=== PATIENT | male | born 1945 | race Caucasian/White ===

== ENCOUNTER 2018-06-21 23:27 | Inpatient (IN) ==
[2018-06-22] MEDS: SODIUM CHLORIDE 0.9% 1,000 ML IV SCH ×3 (02:00→20:12)
[2018-06-22] MEDS ORDERED: ALBUTEROL 2.5 MG/3 ML NEB RESP TX PRN (02:17)
[2018-06-22] MEDS ORDERED: ONDANSETRON 4 MG/2 ML VIAL IV PRN (02:17)
[2018-06-22] MEDS ORDERED: AZITHROMYCIN INJ 500 MG in SODIUM CHLORIDE 0.9% 250 ML IV SCH (03:00)
[2018-06-22] MEDS: LEVOTHYROXINE 25 MCG TABLET PO SCH (06:10)
[2018-06-22 08:07] LABS: Basophils % 0.3 % (0.0-0.8); Hematocrit 40.4 VOL% (42.0-52.0); Hemoglobin 13.3 GM/DL (14.0-18.0); Immature Granulocytes Absolute 0.07 #; Lymphocytes # 0.5 10*3/uL (1.4-4.0); Lymphocytes % 7.4 % (21.2-54.2); Mean Corpuscular HGB Conc 32.9 GM/DL (32-36); Mean Corpuscular Hemoglobin 32 PG (27-34); Mean Corpuscular Volume 95.7 FL (87-102); Mean Platelet Volume 11.5 FL (9.6-12.0); Monocytes # 0.4 10*3/uL (0.11-0.8); Monocytes % 6.1 % (1.7-12.7); Neutrophils # 6.1 10*3/uL (1.4-7.4); Neutrophils % 85.2 % (38.7-73.9); Platelet Count 70 T/CUMM (130-400); Red Blood Count 4.22 MC/CUMM (3.8-5.5); Red Cell Distribution Width 15.4 % (9.3-17.3); White Blood Count 7.2 T/CUMM (4-12)
[2018-06-22 08:24] LABS: Albumin 3.1 G/DL (3.4-5.0); Bilirubin,Total 0.6 MG/DL (0.2-1.0); Calcium 7.7 MG/DL (8.5-10.1); Osmolality,Calculated 277.7 MOS/KG (273-304); Potassium 3.9 MMOL/L (3.5-5.1); Total Protein 6.1 G/DL (6.4-8.3)
[2018-06-22] MEDS ORDERED: PANTOPRAZOLE 40 MG TABLET PO SCH (09:00)
[2018-06-22] MEDS ORDERED: predniSONE 20 MG TABLET PO SCH (09:00)
[2018-06-22 10:22] LABS: Hypochromasia 1+; Platelet Estimate Decreased
[2018-06-22] MEDS: GABAPENTIN 300 MG CAPSULE PO SCH ×3 (10:24→20:06)
[2018-06-22] MEDS: ASPIRIN EC 81 MG TABLET PO SCH (10:24)
[2018-06-22] MEDS: CIPROFLOXACIN 500 MG TABLET PO SCH ×2 (10:24→20:06)
[2018-06-22] MEDS: TAMSULOSIN 0.4 MG CAPSULE PO SCH (10:24)
[2018-06-22] MEDS: PRAVASTATIN 40 MG TABLET PO SCH (10:25)
[2018-06-22] MEDS: ALLOPURINOL 300 MG TABLET PO SCH (10:26)
[2018-06-22] MEDS: ACETAMINOPHEN 325 MG TABLET PO PRN (10:26)
[2018-06-22] MEDS: PANTOPRAZOLE 40 MG TABLET PO SCH (10:26)
[2018-06-22] MEDS: ENOXAPARIN 40 MG/0.4 ML SYRINGE SUBCUT SCH (10:27)
[2018-06-22 12:05] LABS: Apearance,Urine CLEAR (Clear); Bilirubin,Urine Negative (Negative); Blood, Urine Small mg/dL (Negative); Glucose,Urine (UA) Negative (Negative); Ketones,Urine 5 mg/dL (Negative); Mucus,Urine Occasional /LPF (Occasional); Nitrite,Urine Negative (Negative); Protein,Urine 30 MG/DL; RBC,Urine 2 /HPF (0-4); Squamous Epithelial Cell,Urine Occasional /HPF (0-10); Urine Color Yellow (Yellow); Urine Specific Gravity 1.015 (1.001-1.035); Urine Urobilinogen < 2.0 EU/DL (0.2-1.0); WBC,Urine 1 /HPF (0-6)
[2018-06-22] MEDS: methylPREDNISolone SOD SUC 40 MG/1 ML VIAL IV SCH (14:56)
[2018-06-22] MEDS: ALBUTEROL/IPRATROPIUM 3 ML NEB RESP TX SCH (19:27)
[2018-06-22] MEDS: MONTELUKAST 10 MG TABLET PO SCH (20:07)
[2018-06-23] MEDS: ALBUTEROL/IPRATROPIUM 3 ML NEB RESP TX SCH (01:43)
[2018-06-23] MEDS: methylPREDNISolone SOD SUC 40 MG/1 ML VIAL IV SCH ×2 (02:11→14:57)
[2018-06-23] MEDS: SODIUM CHLORIDE 0.9% 1,000 ML IV SCH ×3 (02:14→15:02)
[2018-06-23] MEDS ORDERED: cefTRIAXone 1,000 MG in SYRINGE 1 EACH IV SCH (02:30)
[2018-06-23] MEDS ORDERED: NITROGLYCERIN SL 0.4 MG TABLET SL PRN (03:40)
[2018-06-23] MEDS ORDERED: MORPHINE 4 MG/1 ML VIAL IV PRN (03:40)
[2018-06-23] MEDS ORDERED: ASPIRIN CHEW 81 MG TABLET PO ONE (04:00)
[2018-06-23 04:31] LABS: Basophils % 0.3 % (0.0-0.8); Hematocrit 42.2 VOL% (42.0-52.0); Hemoglobin 13.5 GM/DL (14.0-18.0); Immature Granulocytes % 1.1 %; Immature Granulocytes Absolute 0.04 #; Lymphocytes # 0.3 10*3/uL (1.4-4.0); Mean Corpuscular Hemoglobin 31 PG (27-34); Mean Corpuscular Volume 97.5 FL (87-102); Mean Platelet Volume 12.3 FL (9.6-12.0); Monocytes # 0.1 10*3/uL (0.11-0.8); Monocytes % 3.7 % (1.7-12.7); Neutrophils # 3.1 10*3/uL (1.4-7.4); Neutrophils % 86.9 % (38.7-73.9); Platelet Count 65 T/CUMM (130-400); Red Blood Count 4.33 MC/CUMM (3.8-5.5); Red Cell Distribution Width 14.8 % (9.3-17.3); White Blood Count 3.5 T/CUMM (4-12)
[2018-06-23 04:52] LABS: Hypochromasia 1+; Platelet Estimate Decreased
[2018-06-23 05:06] LABS: Calcium 7.6 MG/DL (8.5-10.1)
[2018-06-23 05:07] LABS: Osmolality,Calculated 284.4 MOS/KG (273-304); Potassium 3.5 MMOL/L (3.5-5.1)
[2018-06-23] MEDS ORDERED: LEVALBUTEROL 1.25 MG/3 ML NEB RESP TX PRN (05:27)
[2018-06-23] MEDS: LEVOTHYROXINE 25 MCG TABLET PO SCH (05:41)
[2018-06-23] MEDS: ENOXAPARIN 40 MG/0.4 ML SYRINGE SUBCUT SCH (08:58)
[2018-06-23] MEDS: GABAPENTIN 300 MG CAPSULE PO SCH ×3 (08:59→21:55)
[2018-06-23] MEDS: ASPIRIN EC 81 MG TABLET PO SCH (09:00)
[2018-06-23] MEDS: CIPROFLOXACIN 500 MG TABLET PO SCH ×2 (09:00→21:55)
[2018-06-23] MEDS: TAMSULOSIN 0.4 MG CAPSULE PO SCH (09:00)
[2018-06-23] MEDS: PANTOPRAZOLE 40 MG TABLET PO SCH (09:01)
[2018-06-23] MEDS: ALLOPURINOL 300 MG TABLET PO SCH (09:01)
[2018-06-23] MEDS: PRAVASTATIN 40 MG TABLET PO SCH (09:01)
[2018-06-23] MEDS: POTASSIUM CHLORIDE 20 MEQ TABLET PO PRN ×2 (09:01→11:55)
[2018-06-23 09:10] LABS: Thyroid Stimulating Hormone 0.313 uIU/ml (0.358-3.74); Uric Acid 4.1 MG/DL (3.5-7.2)
[2018-06-23] MEDS ORDERED: CALCIUM GLUCONATE 1,000 MG in SODIUM CHLORIDE 0.9% 100 ML IV ONE (11:30)
[2018-06-23] MEDS: cefTAZidime 1,000 MG in SYRINGE 1 EACH IV SCH ×2 (12:56→19:00)
[2018-06-23] MEDS: MONTELUKAST 10 MG TABLET PO SCH (21:55)
[2018-06-24] MEDS: ACETAMINOPHEN 325 MG TABLET PO PRN (03:42)
[2018-06-24] MEDS: cefTAZidime 1,000 MG in SYRINGE 1 EACH IV SCH ×3 (03:45→17:59)
[2018-06-24] MEDS: methylPREDNISolone SOD SUC 40 MG/1 ML VIAL IV SCH ×2 (05:15→15:27)
[2018-06-24 05:24] LABS: Basophils % 0.1 % (0.0-0.8); Hematocrit 37.8 VOL% (42.0-52.0); Hemoglobin 12.3 GM/DL (14.0-18.0); Immature Granulocytes % 0.5 %; Immature Granulocytes Absolute 0.04 #; Lymphocytes # 0.6 10*3/uL (1.4-4.0); Lymphocytes % 7.7 % (21.2-54.2); Mean Corpuscular HGB Conc 32.5 GM/DL (32-36); Mean Corpuscular Hemoglobin 31 PG (27-34); Mean Corpuscular Volume 95.2 FL (87-102); Mean Platelet Volume 13.3 FL (9.6-12.0); Monocytes # 0.4 10*3/uL (0.11-0.8); Monocytes % 5.3 % (1.7-12.7); Neutrophils # 6.7 10*3/uL (1.4-7.4); Neutrophils % 86.4 % (38.7-73.9); Red Blood Count 3.97 MC/CUMM (3.8-5.5); Red Cell Distribution Width 14.9 % (9.3-17.3); White Blood Count 7.8 T/CUMM (4-12)
[2018-06-24 05:27] LABS: Platelet Count 74 T/CUMM (130-400)
[2018-06-24 05:36] LABS: Partial Thromboplastin Time 28.4 SECS (0-40)
[2018-06-24] MEDS: LEVOTHYROXINE 25 MCG TABLET PO SCH (05:45)
[2018-06-24 05:49] LABS: Calcium 7.7 MG/DL (8.5-10.1); Osmolality,Calculated 284.3 MOS/KG (273-304); Potassium 4.4 MMOL/L (3.5-5.1)
[2018-06-24] MEDS: ENOXAPARIN 40 MG/0.4 ML SYRINGE SUBCUT SCH (08:31)
[2018-06-24] MEDS: GABAPENTIN 300 MG CAPSULE PO SCH ×3 (08:31→20:49)
[2018-06-24] MEDS: PRAVASTATIN 40 MG TABLET PO SCH (08:31)
[2018-06-24] MEDS: CIPROFLOXACIN 500 MG TABLET PO SCH ×2 (08:32→20:49)
[2018-06-24] MEDS: ALLOPURINOL 300 MG TABLET PO SCH (08:32)
[2018-06-24] MEDS: PANTOPRAZOLE 40 MG TABLET PO SCH (08:32)
[2018-06-24] MEDS: TAMSULOSIN 0.4 MG CAPSULE PO SCH (08:32)
[2018-06-24] MEDS: ASPIRIN EC 81 MG TABLET PO SCH (08:33)
[2018-06-24] MEDS: NIFEdipine 10 MG CAPSULE PO PRN (10:23)
[2018-06-24] MEDS ORDERED: amLODIPine 2.5 MG TABLET PO SCH (11:00)
[2018-06-24] MEDS: SODIUM CHLORIDE 0.9% 1,000 ML IV SCH (14:57)
[2018-06-24] MEDS: MONTELUKAST 10 MG TABLET PO SCH (20:49)
[2018-06-25] MEDS: methylPREDNISolone SOD SUC 40 MG/1 ML VIAL IV SCH ×2 (02:09→15:44)
[2018-06-25] MEDS: cefTAZidime 1,000 MG in SYRINGE 1 EACH IV SCH ×3 (02:16→18:16)
[2018-06-25] MEDS: NIFEdipine 10 MG CAPSULE PO PRN (03:30)
[2018-06-25 05:36] LABS: Basophils % 0.1 % (0.0-0.8); Hematocrit 39.8 VOL% (42.0-52.0); Hemoglobin 12.8 GM/DL (14.0-18.0); Immature Granulocytes % 0.9 %; Immature Granulocytes Absolute 0.08 #; Lymphocytes # 0.6 10*3/uL (1.4-4.0); Lymphocytes % 6.4 % (21.2-54.2); Mean Corpuscular HGB Conc 32.2 GM/DL (32-36); Mean Corpuscular Hemoglobin 31 PG (27-34); Mean Corpuscular Volume 95.7 FL (87-102); Mean Platelet Volume 12.5 FL (9.6-12.0); Monocytes # 0.5 10*3/uL (0.11-0.8); Monocytes % 5.9 % (1.7-12.7); Neutrophils # 7.6 10*3/uL (1.4-7.4); Neutrophils % 86.7 % (38.7-73.9); Platelet Count 90 T/CUMM (130-400); Red Blood Count 4.16 MC/CUMM (3.8-5.5); Red Cell Distribution Width 14.9 % (9.3-17.3); White Blood Count 8.7 T/CUMM (4-12)
[2018-06-25] MEDS: LEVOTHYROXINE 25 MCG TABLET PO SCH (05:45)
[2018-06-25 05:59] LABS: Calcium 8.1 MG/DL (8.5-10.1); Osmolality,Calculated 287.1 MOS/KG (273-304)
[2018-06-25 07:43] LABS: Band Neutrophils 2 % (0-10); Lymphocytes 10 % (20-55); Platelet Estimate Decreased; Segmented Neutrophils 85 % (50-85); Total Cells Counted 100
[2018-06-25] MEDS: PRAVASTATIN 40 MG TABLET PO SCH (08:51)
[2018-06-25] MEDS: ASPIRIN EC 81 MG TABLET PO SCH (08:51)
[2018-06-25] MEDS: ENOXAPARIN 40 MG/0.4 ML SYRINGE SUBCUT SCH (08:51)
[2018-06-25] MEDS: amLODIPine 5 MG TABLET PO SCH (08:51)
[2018-06-25] MEDS: GABAPENTIN 300 MG CAPSULE PO SCH ×2 (08:51→15:44)
[2018-06-25] MEDS: TAMSULOSIN 0.4 MG CAPSULE PO SCH (08:52)
[2018-06-25] MEDS: ALLOPURINOL 300 MG TABLET PO SCH (08:52)
[2018-06-25] MEDS: CIPROFLOXACIN 500 MG TABLET PO SCH ×2 (08:52→21:53)
[2018-06-25] MEDS: PANTOPRAZOLE 40 MG TABLET PO SCH (08:52)
[2018-06-25] MEDS: GABAPENTIN 100 MG CAPSULE PO SCH (21:52)
[2018-06-25] MEDS: MONTELUKAST 10 MG TABLET PO SCH (21:53)
[2018-06-25] MEDS: GABAPENTIN 600 MG TABLET PO SCH (21:53)
[2018-06-26] MEDS: methylPREDNISolone SOD SUC 40 MG/1 ML VIAL IV SCH ×2 (05:01→15:47)
[2018-06-26] MEDS: cefTAZidime 1,000 MG in SYRINGE 1 EACH IV SCH ×3 (05:04→18:00)
[2018-06-26] MEDS: GABAPENTIN 300 MG CAPSULE PO SCH (05:41)
[2018-06-26 06:21] LABS: Basophils % 0.2 % (0.0-0.8); Hematocrit 39.8 VOL% (42.0-52.0); Hemoglobin 13.1 GM/DL (14.0-18.0); Immature Granulocytes % 1.8 %; Immature Granulocytes Absolute 0.12 #; Lymphocytes # 0.8 10*3/uL (1.4-4.0); Lymphocytes % 11.5 % (21.2-54.2); Mean Corpuscular HGB Conc 32.9 GM/DL (32-36); Mean Corpuscular Hemoglobin 31 PG (27-34); Mean Corpuscular Volume 95.4 FL (87-102); Mean Platelet Volume 12.1 FL (9.6-12.0); Monocytes # 0.4 10*3/uL (0.11-0.8); Monocytes % 6.3 % (1.7-12.7); NRBC # 0.02 10*3/uL; Neutrophils # 5.3 10*3/uL (1.4-7.4); Neutrophils % 80.2 % (38.7-73.9); Platelet Count 104 T/CUMM (130-400); Red Blood Count 4.17 MC/CUMM (3.8-5.5); Red Cell Distribution Width 15.1 % (9.3-17.3); White Blood Count 6.6 T/CUMM (4-12)
[2018-06-26] MEDS: LEVOTHYROXINE 25 MCG TABLET PO SCH (06:40)
[2018-06-26 06:48] LABS: Calcium 8.3 MG/DL (8.5-10.1)
[2018-06-26] MEDS: ENOXAPARIN 40 MG/0.4 ML SYRINGE SUBCUT SCH (08:15)
[2018-06-26] MEDS: GABAPENTIN 600 MG TABLET PO SCH ×4 (08:16→21:31)
[2018-06-26] MEDS: PRAVASTATIN 40 MG TABLET PO SCH (08:16)
[2018-06-26] MEDS: amLODIPine 5 MG TABLET PO SCH (08:16)
[2018-06-26] MEDS: TAMSULOSIN 0.4 MG CAPSULE PO SCH (08:16)
[2018-06-26] MEDS: ASPIRIN EC 81 MG TABLET PO SCH (08:16)
[2018-06-26] MEDS: ALLOPURINOL 300 MG TABLET PO SCH (08:16)
[2018-06-26] MEDS: CIPROFLOXACIN 500 MG TABLET PO SCH ×2 (08:16→21:31)
[2018-06-26] MEDS: GABAPENTIN 100 MG CAPSULE PO SCH ×3 (08:16→21:31)
[2018-06-26] MEDS: PANTOPRAZOLE 40 MG TABLET PO SCH (08:16)
[2018-06-26] MEDS: AZELASTINE NASAL 137 MCG/SPRAY 30 ML BOTTLE BOTH NARES SCH ×2 (15:47→21:31)
[2018-06-26] MEDS: MONTELUKAST 10 MG TABLET PO SCH (21:33)
[2018-06-27] MEDS: methylPREDNISolone SOD SUC 40 MG/1 ML VIAL IV SCH ×2 (04:19→15:31)
[2018-06-27] MEDS: cefTAZidime 1,000 MG in SYRINGE 1 EACH IV SCH ×3 (04:19→18:22)
[2018-06-27 05:39] LABS: Basophils % 0.2 % (0.0-0.8); Hematocrit 39.1 VOL% (42.0-52.0); Hemoglobin 12.8 GM/DL (14.0-18.0); Immature Granulocytes % 4.4 %; Immature Granulocytes Absolute 0.36 #; Lymphocytes # 0.9 10*3/uL (1.4-4.0); Lymphocytes % 11.4 % (21.2-54.2); Mean Corpuscular HGB Conc 32.7 GM/DL (32-36); Mean Corpuscular Hemoglobin 31 PG (27-34); Mean Corpuscular Volume 95.8 FL (87-102); Mean Platelet Volume 11.9 FL (9.6-12.0); Monocytes # 0.6 10*3/uL (0.11-0.8); Monocytes % 6.7 % (1.7-12.7); NRBC # 0.03 10*3/uL; Neutrophils # 6.4 10*3/uL (1.4-7.4); Neutrophils % 77.3 % (38.7-73.9); Platelet Count 116 T/CUMM (130-400); Red Blood Count 4.08 MC/CUMM (3.8-5.5); White Blood Count 8.3 T/CUMM (4-12)
[2018-06-27 05:50] LABS: Calcium 8.3 MG/DL (8.5-10.1); Osmolality,Calculated 288.1 MOS/KG (273-304); Potassium 3.8 MMOL/L (3.5-5.1)
[2018-06-27] MEDS: LEVOTHYROXINE 25 MCG TABLET PO SCH (06:01)
[2018-06-27] MEDS: PRAVASTATIN 40 MG TABLET PO SCH (09:36)
[2018-06-27] MEDS: amLODIPine 5 MG TABLET PO SCH (09:36)
[2018-06-27] MEDS: AZELASTINE NASAL 137 MCG/SPRAY 30 ML BOTTLE BOTH NARES SCH ×2 (09:36→20:58)
[2018-06-27] MEDS: TAMSULOSIN 0.4 MG CAPSULE PO SCH (09:36)
[2018-06-27] MEDS: PANTOPRAZOLE 40 MG TABLET PO SCH (09:36)
[2018-06-27] MEDS: GABAPENTIN 600 MG TABLET PO SCH ×3 (09:36→20:57)
[2018-06-27] MEDS: CIPROFLOXACIN 500 MG TABLET PO SCH ×2 (09:36→20:58)
[2018-06-27] MEDS: ALLOPURINOL 300 MG TABLET PO SCH (09:36)
[2018-06-27] MEDS: ASPIRIN EC 81 MG TABLET PO SCH (09:36)
[2018-06-27] MEDS: GABAPENTIN 100 MG CAPSULE PO SCH ×3 (09:43→20:57)
[2018-06-27] MEDS: ENOXAPARIN 40 MG/0.4 ML SYRINGE SUBCUT SCH (09:44)
[2018-06-27] MEDS ORDERED: amLODIPine 10 MG TABLET PO SCH (11:41)
[2018-06-27] MEDS ORDERED: SODIUM CHLORIDE 0.45% 500 ML IV ONE (12:25)
[2018-06-27] MEDS: MONTELUKAST 10 MG TABLET PO SCH (20:58)
[2018-06-28] MEDS: methylPREDNISolone SOD SUC 40 MG/1 ML VIAL IV SCH (04:07)
[2018-06-28] MEDS: cefTAZidime 1,000 MG in SYRINGE 1 EACH IV SCH ×2 (04:11→11:51)
[2018-06-28 05:51] LABS: Basophils % 0.3 % (0.0-0.8); Eosinophils % 0.1 % (0.00-10.9); Hematocrit 40.3 VOL% (42.0-52.0); Hemoglobin 13.2 GM/DL (14.0-18.0); Immature Granulocytes % 5.8 %; Immature Granulocytes Absolute 0.52 #; Lymphocytes # 0.9 10*3/uL (1.4-4.0); Lymphocytes % 10.4 % (21.2-54.2); Mean Corpuscular HGB Conc 32.8 GM/DL (32-36); Mean Corpuscular Hemoglobin 31 PG (27-34); Mean Platelet Volume 11.6 FL (9.6-12.0); Monocytes # 0.5 10*3/uL (0.11-0.8); Monocytes % 5.2 % (1.7-12.7); Neutrophils # 7.1 10*3/uL (1.4-7.4); Neutrophils % 78.2 % (38.7-73.9); Platelet Count 127 T/CUMM (130-400); Red Cell Distribution Width 14.7 % (9.3-17.3)
[2018-06-28] MEDS: LEVOTHYROXINE 25 MCG TABLET PO SCH (06:02)
[2018-06-28 06:08] LABS: Calcium 8.8 MG/DL (8.5-10.1); Osmolality,Calculated 288.1 MOS/KG (273-304)
[2018-06-28 06:26] LABS: Hypochromasia 1+; Lymphocytes 10 % (20-55); Ovalocytes Slight; Platelet Estimate Normal; Segmented Neutrophils 85 % (50-85); Total Cells Counted 100
[2018-06-28] MEDS: TAMSULOSIN 0.4 MG CAPSULE PO SCH (08:39)
[2018-06-28] MEDS: PANTOPRAZOLE 40 MG TABLET PO SCH (08:39)
[2018-06-28] MEDS: AZELASTINE NASAL 137 MCG/SPRAY 30 ML BOTTLE BOTH NARES SCH (08:39)
[2018-06-28] MEDS: GABAPENTIN 100 MG CAPSULE PO SCH (08:39)
[2018-06-28] MEDS: ENOXAPARIN 40 MG/0.4 ML SYRINGE SUBCUT SCH (08:40)
[2018-06-28] MEDS: CIPROFLOXACIN 500 MG TABLET PO SCH (08:40)
[2018-06-28] MEDS: ASPIRIN EC 81 MG TABLET PO SCH (08:40)
[2018-06-28] MEDS: PRAVASTATIN 40 MG TABLET PO SCH (08:40)
[2018-06-28] MEDS: GABAPENTIN 600 MG TABLET PO SCH (08:40)
[2018-06-28 12:37] VITALS: BP 161/81
[2018-06-29] MEDS ORDERED: predniSONE 10 MG TABLET PO SCH (09:00)
[2018-07-07] MEDS ORDERED: predniSONE 10 MG TABLET PO SCH (09:00)
== END 2018-06-28 15:00 | disposition home or self-care (01) | DRG 194 ==
LOC: N.CC 06-22 00:37 → SUATTDRO 06-22 00:37 → N.5E 06-24 14:08
PROVIDERS: ADMIT Internal Medicine; ATTEND Internal Medicine

== ENCOUNTER 2018-08-25 04:35 | Inpatient (IN) ==
[2018-08-25] MEDS ORDERED: MAGNESIUM SULF RIDER 4 GM in PREMIX 1 EACH IV PRN (05:59)
[2018-08-25] MEDS ORDERED: ONDANSETRON 4 MG/2 ML VIAL IV PRN (05:59)
[2018-08-25] MEDS ORDERED: MORPHINE 4 MG/1 ML VIAL IV PRN (05:59)
[2018-08-25] MEDS ORDERED: MAGNESIUM SULF RIDER 2 GM in PREMIX 1 EACH IV PRN (05:59)
[2018-08-25] MEDS ORDERED: ZALEPLON 5 MG CAPSULE PO PRN (05:59)
[2018-08-25] MEDS ORDERED: POTASSIUM CHLORIDE 20 MEQ TABLET PO PRN (05:59)
[2018-08-25] MEDS ORDERED: NITROGLYCERIN SL 0.4 MG TABLET SL PRN (06:03)
[2018-08-25] MEDS ORDERED: ACETAMINOPHEN 325 MG TABLET PO PRN (06:05)
[2018-08-25] MEDS: SODIUM CHLORIDE 0.45% 1,000 ML IV SCH ×4 (06:27→23:35)
[2018-08-25 06:43] LABS: Risk Ratio 3.92; VLDL CHOLESTEROL 39.8 MG/DL
[2018-08-25] MEDS ORDERED: BISACODYL 5 MG TABLET PO PRN (08:23)
[2018-08-25] MEDS ORDERED: DOCUSATE SODIUM 100 MG CAPSULE PO PRN (08:23)
[2018-08-25] MEDS ORDERED: LACTULOSE 20 GM/30 ML UDCUP PO PRN (08:23)
[2018-08-25] MEDS ORDERED: guaiFENesin/DM ER 600-30 MG TABLET PO PRN (08:23)
[2018-08-25] MEDS ORDERED: PROMETHAZINE 25 MG TABLET PO PRN (08:23)
[2018-08-25] MEDS ORDERED: diphenhydrAMINE CAP 25 MG CAPSULE PO PRN (08:23)
[2018-08-25] MEDS: ASPIRIN 325 MG TABLET PO SCH (11:04)
[2018-08-25] MEDS: TAMSULOSIN 0.4 MG CAPSULE PO SCH (11:04)
[2018-08-25] MEDS: amLODIPine 10 MG TABLET PO SCH (11:04)
[2018-08-25] MEDS: PANTOPRAZOLE 40 MG TABLET PO SCH (11:05)
[2018-08-25 11:18] LABS: Calcium 8.6 MG/DL (8.5-10.1); Potassium 3.2 MMOL/L (3.5-5.1)
[2018-08-25] MEDS ORDERED: NITROGLYCERIN 2% OINT 1 INCH/GM PACK TOP SCH (12:00)
[2018-08-25] MEDS ORDERED: SIMVASTATIN 20 MG TABLET PO SCH (12:00)
[2018-08-25] MEDS: LEVOTHYROXINE 25 MCG TABLET PO SCH (12:55)
[2018-08-25] MEDS: METOPROLOL TARTRATE 25 MG TABLET PO SCH ×2 (12:55→20:57)
[2018-08-25] MEDS: ALLOPURINOL 300 MG TABLET PO SCH (12:55)
[2018-08-25] MEDS: GABAPENTIN 300 MG CAPSULE PO SCH ×2 (16:07→20:57)
[2018-08-25] MEDS: ENOXAPARIN 100 MG/ML SYRINGE SUBCUT SCH (16:07)
[2018-08-25] MEDS: NITROGLYCERIN 2% OINT 1 INCH/GM PACK TOP SCH (17:19)
[2018-08-25] MEDS: MONTELUKAST 10 MG TABLET PO SCH (20:57)
[2018-08-25] MEDS: ROSUVASTATIN 20 MG TABLET PO SCH (20:57)
[2018-08-25] MEDS: AZELASTINE NASAL 137 MCG/SPRAY 30 ML BOTTLE BOTH NARES SCH (21:10)
[2018-08-26] MEDS: NITROGLYCERIN 2% OINT 1 INCH/GM PACK TOP SCH ×2 (01:01→05:50)
[2018-08-26 04:03] LABS: Basophils # 0.1 10*3/uL (0.0-0.2); Eosinophils # 0.2 10*3/uL (0.0-0.87); Eosinophils % 2.1 % (0.00-10.9); Hematocrit 40.6 VOL% (42.0-52.0); Hemoglobin 12.7 GM/DL (14.0-18.0); Immature Granulocytes % 0.4 %; Immature Granulocytes Absolute 0.03 #; Lymphocytes % 28.2 % (21.2-54.2); Mean Corpuscular HGB Conc 31.3 GM/DL (32-36); Mean Corpuscular Hemoglobin 31 PG (27-34); Mean Corpuscular Volume 98.8 FL (87-102); Mean Platelet Volume 11.6 FL (9.6-12.0); Monocytes # 0.7 10*3/uL (0.11-0.8); Monocytes % 9.7 % (1.7-12.7); Neutrophils # 4.1 10*3/uL (1.4-7.4); Neutrophils % 58.6 % (38.7-73.9); Platelet Count 138 T/CUMM (130-400); Red Blood Count 4.11 MC/CUMM (3.8-5.5); Red Cell Distribution Width 14.6 % (9.3-17.3)
[2018-08-26] MEDS: ENOXAPARIN 100 MG/ML SYRINGE SUBCUT SCH ×2 (04:25→17:30)
[2018-08-26 04:41] LABS: Albumin 2.9 G/DL (3.4-5.0); Bilirubin,Total 0.9 MG/DL (0.2-1.0); Osmolality,Calculated 284.1 MOS/KG (273-304); Potassium 3.4 MMOL/L (3.5-5.1); Thyroid Stimulating Hormone 1.14 uIU/ml (0.358-3.74); Total Protein 5.7 G/DL (6.4-8.3)
[2018-08-26] MEDS: LEVOTHYROXINE 25 MCG TABLET PO SCH ×2 (05:50→08:12)
[2018-08-26] MEDS: POTASSIUM CHLORIDE RIDER 10 MEQ in PREMIX 1 EACH IV PRN ×2 (06:15→08:14)
[2018-08-26] MEDS ORDERED: LIDOCAINE 1% 20 ML VIAL ONE (07:39)
[2018-08-26] MEDS ORDERED: VERAPAMIL 5 MG/2 ML VIAL ONE (07:39)
[2018-08-26] MEDS ORDERED: HEPARIN/NACL 0.9% 2 UNITS/ML 1,000 ML IV ONE (07:39)
[2018-08-26] MEDS ORDERED: NITROGLYCERIN DRIP 50 MG/250 ML BOTTLE IV ONE (07:39)
[2018-08-26] MEDS ORDERED: diphenhydrAMINE CAP 25 MG CAPSULE PO ONE (08:00)
[2018-08-26] MEDS ORDERED: DIAZEPAM 5 MG TABLET PO ONE (08:00)
[2018-08-26] MEDS: ASPIRIN 325 MG TABLET PO SCH (08:12)
[2018-08-26] MEDS: amLODIPine 10 MG TABLET PO SCH (08:12)
[2018-08-26] MEDS: METOPROLOL TARTRATE 25 MG TABLET PO SCH ×2 (08:13→21:06)
[2018-08-26] MEDS: SODIUM CHLORIDE 0.45% 1,000 ML IV SCH ×2 (08:13→15:51)
[2018-08-26] MEDS ORDERED: MIDAZOLAM 2 MG/2 ML VIAL ONE (09:01)
[2018-08-26] MEDS ORDERED: HYDROmorphone 2 MG/1 ML VIAL ONE (09:01)
[2018-08-26] MEDS ORDERED: BIVALIRUDIN 250 MG VIAL IV ONE (09:30)
[2018-08-26] MEDS: ASCORBIC ACID 500 MG TABLET PO SCH ×2 (12:05→21:07)
[2018-08-26] MEDS: SPIRONOLACTONE 25 MG TABLET PO SCH (12:06)
[2018-08-26] MEDS: POTASSIUM CHLORIDE 20 MEQ TABLET PO SCH (12:06)
[2018-08-26] MEDS: ALLOPURINOL 300 MG TABLET PO SCH (12:06)
[2018-08-26] MEDS: GABAPENTIN 300 MG CAPSULE PO SCH ×3 (12:06→21:06)
[2018-08-26] MEDS: TAMSULOSIN 0.4 MG CAPSULE PO SCH (12:07)
[2018-08-26] MEDS: predniSONE 10 MG TABLET PO SCH (12:07)
[2018-08-26] MEDS: PANTOPRAZOLE 40 MG TABLET PO SCH (12:08)
[2018-08-26] MEDS: AZELASTINE NASAL 137 MCG/SPRAY 30 ML BOTTLE BOTH NARES SCH ×2 (14:04→21:06)
[2018-08-26] MEDS: ROSUVASTATIN 20 MG TABLET PO SCH (21:06)
[2018-08-26] MEDS: MONTELUKAST 10 MG TABLET PO SCH (21:07)
[2018-08-27] MEDS: ENOXAPARIN 100 MG/ML SYRINGE SUBCUT SCH ×2 (03:58→16:37)
[2018-08-27 04:30] LABS: Basophils % 0.5 % (0.0-0.8); Eosinophils % 0.6 % (0.00-10.9); Hematocrit 38.8 VOL% (42.0-52.0); Hemoglobin 12.5 GM/DL (14.0-18.0); Immature Granulocytes % 0.6 %; Immature Granulocytes Absolute 0.04 #; Lymphocytes # 1.6 10*3/uL (1.4-4.0); Lymphocytes % 25.6 % (21.2-54.2); Mean Corpuscular HGB Conc 32.2 GM/DL (32-36); Mean Corpuscular Hemoglobin 32 PG (27-34); Mean Corpuscular Volume 98.2 FL (87-102); Mean Platelet Volume 12.5 FL (9.6-12.0); Monocytes # 0.5 10*3/uL (0.11-0.8); Monocytes % 8.3 % (1.7-12.7); Neutrophils % 64.4 % (38.7-73.9); Platelet Count 130 T/CUMM (130-400); Red Blood Count 3.95 MC/CUMM (3.8-5.5); Red Cell Distribution Width 14.2 % (9.3-17.3); White Blood Count 6.3 T/CUMM (4-12)
[2018-08-27 05:28] LABS: Calcium 8.3 MG/DL (8.5-10.1); Osmolality,Calculated 285.1 MOS/KG (273-304); Potassium 3.7 MMOL/L (3.5-5.1)
[2018-08-27] MEDS: LEVOTHYROXINE 25 MCG TABLET PO SCH (07:13)
[2018-08-27] MEDS: METOPROLOL TARTRATE 25 MG TABLET PO SCH ×2 (09:00→21:22)
[2018-08-27] MEDS: AZELASTINE NASAL 137 MCG/SPRAY 30 ML BOTTLE BOTH NARES SCH ×2 (10:25→21:24)
[2018-08-27] MEDS: GABAPENTIN 300 MG CAPSULE PO SCH ×3 (13:08→21:21)
[2018-08-27] MEDS: POTASSIUM CHLORIDE 20 MEQ TABLET PO SCH (13:08)
[2018-08-27] MEDS: LOSARTAN 25 MG TABLET PO SCH (13:08)
[2018-08-27] MEDS: ASPIRIN 325 MG TABLET PO SCH (13:08)
[2018-08-27] MEDS: ASCORBIC ACID 500 MG TABLET PO SCH ×2 (13:09→21:22)
[2018-08-27] MEDS: ALLOPURINOL 300 MG TABLET PO SCH (13:09)
[2018-08-27] MEDS: SPIRONOLACTONE 25 MG TABLET PO SCH (13:09)
[2018-08-27] MEDS: TAMSULOSIN 0.4 MG CAPSULE PO SCH (13:09)
[2018-08-27] MEDS: ISOSORBIDE MONONITRATE 30 MG TABLET PO SCH (13:09)
[2018-08-27] MEDS: ROSUVASTATIN 20 MG TABLET PO SCH (21:21)
[2018-08-27] MEDS: MONTELUKAST 10 MG TABLET PO SCH (21:21)
[2018-08-28] MEDS: ENOXAPARIN 100 MG/ML SYRINGE SUBCUT SCH ×2 (03:18→15:19)
[2018-08-28 04:05] LABS: Basophils # 0.1 10*3/uL (0.0-0.2); Basophils % 1.3 % (0.0-0.8); Eosinophils # 0.1 10*3/uL (0.0-0.87); Eosinophils % 2.6 % (0.00-10.9); Hematocrit 38.3 VOL% (42.0-52.0); Immature Granulocytes % 0.7 %; Immature Granulocytes Absolute 0.03 #; Lymphocytes # 1.4 10*3/uL (1.4-4.0); Lymphocytes % 31.6 % (21.2-54.2); Mean Corpuscular HGB Conc 31.3 GM/DL (32-36); Mean Corpuscular Hemoglobin 31 PG (27-34); Mean Corpuscular Volume 99.2 FL (87-102); Mean Platelet Volume 12.2 FL (9.6-12.0); Monocytes # 0.5 10*3/uL (0.11-0.8); Neutrophils # 2.4 10*3/uL (1.4-7.4); Neutrophils % 52.8 % (38.7-73.9); Platelet Count 125 T/CUMM (130-400); Red Blood Count 3.86 MC/CUMM (3.8-5.5); Red Cell Distribution Width 14.5 % (9.3-17.3); White Blood Count 4.5 T/CUMM (4-12)
[2018-08-28 04:46] LABS: Calcium 7.7 MG/DL (8.5-10.1); Osmolality,Calculated 289.7 MOS/KG (273-304); Potassium 3.7 MMOL/L (3.5-5.1)
[2018-08-28] MEDS: LEVOTHYROXINE 25 MCG TABLET PO SCH (06:29)
[2018-08-28] MEDS: ASPIRIN 325 MG TABLET PO SCH (08:39)
[2018-08-28] MEDS: POTASSIUM CHLORIDE 20 MEQ TABLET PO SCH (08:40)
[2018-08-28] MEDS: GABAPENTIN 300 MG CAPSULE PO SCH ×3 (08:40→21:42)
[2018-08-28] MEDS: SPIRONOLACTONE 25 MG TABLET PO SCH (08:41)
[2018-08-28] MEDS: METOPROLOL TARTRATE 25 MG TABLET PO SCH ×2 (08:41→21:42)
[2018-08-28] MEDS: ALLOPURINOL 300 MG TABLET PO SCH (08:41)
[2018-08-28] MEDS: ASCORBIC ACID 500 MG TABLET PO SCH ×2 (08:41→21:42)
[2018-08-28] MEDS: TAMSULOSIN 0.4 MG CAPSULE PO SCH (08:41)
[2018-08-28] MEDS: ISOSORBIDE MONONITRATE 30 MG TABLET PO SCH (08:41)
[2018-08-28] MEDS: LOSARTAN 25 MG TABLET PO SCH (08:42)
[2018-08-28] MEDS: AZELASTINE NASAL 137 MCG/SPRAY 30 ML BOTTLE BOTH NARES SCH ×2 (08:42→21:41)
[2018-08-28] MEDS: predniSONE 10 MG TABLET PO SCH (08:42)
[2018-08-28] MEDS: ROSUVASTATIN 20 MG TABLET PO SCH (21:41)
[2018-08-28] MEDS: MONTELUKAST 10 MG TABLET PO SCH (21:42)
[2018-08-29 04:12] LABS: Basophils % 0.3 % (0.0-0.8); Eosinophils % 0.7 % (0.00-10.9); Hematocrit 39.1 VOL% (42.0-52.0); Hemoglobin 12.3 GM/DL (14.0-18.0); Immature Granulocytes % 0.7 %; Immature Granulocytes Absolute 0.04 #; Lymphocytes # 1.2 10*3/uL (1.4-4.0); Lymphocytes % 19.2 % (21.2-54.2); Mean Corpuscular HGB Conc 31.5 GM/DL (32-36); Mean Corpuscular Hemoglobin 31 PG (27-34); Mean Corpuscular Volume 98.5 FL (87-102); Mean Platelet Volume 11.9 FL (9.6-12.0); Monocytes # 0.5 10*3/uL (0.11-0.8); Monocytes % 7.5 % (1.7-12.7); Neutrophils # 4.4 10*3/uL (1.4-7.4); Neutrophils % 71.6 % (38.7-73.9); Platelet Count 133 T/CUMM (130-400); Red Blood Count 3.97 MC/CUMM (3.8-5.5); Red Cell Distribution Width 14.1 % (9.3-17.3); White Blood Count 6.1 T/CUMM (4-12)
[2018-08-29 04:28] LABS: Calcium 8.5 MG/DL (8.5-10.1); Potassium 4.2 MMOL/L (3.5-5.1)
[2018-08-29] MEDS: ENOXAPARIN 100 MG/ML SYRINGE SUBCUT SCH ×2 (05:00→15:18)
[2018-08-29] MEDS: LEVOTHYROXINE 25 MCG TABLET PO SCH (05:47)
[2018-08-29] MEDS: AZELASTINE NASAL 137 MCG/SPRAY 30 ML BOTTLE BOTH NARES SCH ×2 (08:47→21:31)
[2018-08-29] MEDS: ASPIRIN 325 MG TABLET PO SCH (08:49)
[2018-08-29] MEDS: ISOSORBIDE MONONITRATE 30 MG TABLET PO SCH (08:49)
[2018-08-29] MEDS: POTASSIUM CHLORIDE 20 MEQ TABLET PO SCH (08:50)
[2018-08-29] MEDS: METOPROLOL TARTRATE 25 MG TABLET PO SCH ×2 (08:50→21:18)
[2018-08-29] MEDS: ASCORBIC ACID 500 MG TABLET PO SCH ×2 (08:51→21:31)
[2018-08-29] MEDS: GABAPENTIN 300 MG CAPSULE PO SCH ×3 (08:51→21:31)
[2018-08-29] MEDS: ALLOPURINOL 300 MG TABLET PO SCH (08:51)
[2018-08-29] MEDS: SPIRONOLACTONE 50 MG TABLET PO SCH (08:52)
[2018-08-29] MEDS: LOSARTAN 25 MG TABLET PO SCH (08:52)
[2018-08-29] MEDS: TAMSULOSIN 0.4 MG CAPSULE PO SCH (08:52)
[2018-08-29] MEDS: MONTELUKAST 10 MG TABLET PO SCH (21:31)
[2018-08-29] MEDS: ROSUVASTATIN 20 MG TABLET PO SCH (21:31)
[2018-08-30] MEDS: LEVOTHYROXINE 25 MCG TABLET PO SCH (05:34)
[2018-08-30] MEDS: ENOXAPARIN 100 MG/ML SYRINGE SUBCUT SCH (05:34)
[2018-08-30] MEDS: SPIRONOLACTONE 50 MG TABLET PO SCH (09:15)
[2018-08-30] MEDS: TAMSULOSIN 0.4 MG CAPSULE PO SCH (09:15)
[2018-08-30] MEDS: ALLOPURINOL 300 MG TABLET PO SCH (09:15)
[2018-08-30] MEDS: METOPROLOL TARTRATE 25 MG TABLET PO SCH (09:15)
[2018-08-30] MEDS: ISOSORBIDE MONONITRATE 30 MG TABLET PO SCH (09:15)
[2018-08-30] MEDS: ASPIRIN 325 MG TABLET PO SCH (09:15)
[2018-08-30] MEDS: predniSONE 10 MG TABLET PO SCH (09:15)
[2018-08-30] MEDS: GABAPENTIN 300 MG CAPSULE PO SCH (09:16)
[2018-08-30] MEDS: ASCORBIC ACID 500 MG TABLET PO SCH (09:16)
[2018-08-30] MEDS: POTASSIUM CHLORIDE 20 MEQ TABLET PO SCH (09:24)
[2018-08-30] MEDS: LOSARTAN 25 MG TABLET PO SCH (09:24)
[2018-08-30] MEDS: AZELASTINE NASAL 137 MCG/SPRAY 30 ML BOTTLE BOTH NARES SCH (09:24)
[2018-08-30 11:56] VITALS: BP 125/63
[2018-08-31] MEDS ORDERED: ERGOCALCIFEROL 50,000 UNIT CAPSULE PO SCH (09:00)
[2018-08-31] MEDS ORDERED: METOPROLOL TARTRATE 25 MG TABLET PO SCH (09:00)
== END 2018-08-30 14:50 | disposition home or self-care (01) | DRG 281 ==
LOC: EDBD → EDUNIT# → N.ED 04:35 → N.EDINP 05:59 → N.2W 08:42 → N.TELEN 12:07
PROVIDERS: ADMIT Internal Medicine Cardiovascular Disease; ATTEND Internal Medicine Cardiovascular Disease

== ENCOUNTER 2018-09-22 05:17 | Inpatient (IN) ==
[2018-09-21 12:20] LABS: Basophils % 0.5 % (0.0-0.8); Eosinophils # 0.3 10*3/uL (0.0-0.87); Eosinophils % 3.5 % (0.00-10.9); Hematocrit 41.9 VOL% (42.0-52.0); Hemoglobin 13.5 GM/DL (14.0-18.0); Immature Granulocytes % 0.8 %; Immature Granulocytes Absolute 0.06 #; Lymphocytes # 1.5 10*3/uL (1.4-4.0); Lymphocytes % 20.8 % (21.2-54.2); Mean Corpuscular HGB Conc 32.2 GM/DL (32-36); Mean Corpuscular Hemoglobin 31 PG (27-34); Mean Corpuscular Volume 95.7 FL (87-102); Mean Platelet Volume 11.9 FL (9.6-12.0); Monocytes # 0.6 10*3/uL (0.11-0.8); Monocytes % 8.1 % (1.7-12.7); Neutrophils # 4.9 10*3/uL (1.4-7.4); Neutrophils % 66.3 % (38.7-73.9); Platelet Count 131 T/CUMM (130-400); Red Blood Count 4.38 MC/CUMM (3.8-5.5); Red Cell Distribution Width 14.1 % (9.3-17.3); White Blood Count 7.4 T/CUMM (4-12)
[2018-09-21 12:29] LABS: INR 0.9; PT Patient Result 10.1 SECS; Partial Thromboplastin Time 25.4 SECS (0-40)
[2018-09-21 12:42] LABS: Apearance,Urine Slightly Hazy (Clear); Bacteria,Urine Occasional /HPF (Few); Bilirubin,Urine Negative (Negative); Blood, Urine Small mg/dL (Negative); Glucose,Urine (UA) Negative (Negative); Ketones,Urine Negative (Negative); Mucus,Urine Occasional /LPF (Occasional); Nitrite,Urine Negative (Negative); Protein,Urine Negative; RBC,Urine 31 /HPF (0-4); Urine Color Yellow (Yellow); Urine Specific Gravity 1.012 (1.001-1.035); Urine Urobilinogen < 2.0 EU/DL (0.2-1.0); WBC,Urine 104 /HPF (0-6)
[2018-09-21 12:46] LABS: Calcium 8.2 MG/DL (8.5-10.1); Osmolality,Calculated 279.5 MOS/KG (273-304); Potassium 4.2 MMOL/L (3.5-5.1)
[~2018-09-22 05:17] MED LIST: PAPAVERINE 60 MG/2 ML VIAL ONE; SODIUM CHLORIDE 0.9% 1,000 ML IV PRN; TISSUE ADHESIVE 1 EACH APPLICATOR TOP ONE; VANCOMYCIN 1,000 MG VIAL ONE
[2018-09-22] MEDS ORDERED: VECURONIUM 10 MG VIAL IV ONE ×2 (05:45→10:53)
[2018-09-22] MEDS ORDERED: CEFUROXIME 1,500 MG VIAL ONE (05:56)
[2018-09-22] MEDS ORDERED: DIAZEPAM 5 MG TABLET PO ONE (06:14)
[2018-09-22] MEDS ORDERED: PANTOPRAZOLE 40 MG TABLET PO ONE ×2 (06:15→06:36)
[2018-09-22] MEDS ORDERED: DIAZEPAM 5 MG TABLET ONE (06:35)
[2018-09-22] MEDS ORDERED: LACTATED RINGERS 1,000 ML IV SCH (07:00)
[2018-09-22 07:42] LABS: ABG Base Excess -0.6 MMOL/L (-2.5-2.5); ABG HCO3 23.9 MMOL/L (20-26); ABG Oxygen Saturation 99.9 % (95-100); ABG PCO2 40.7 MM HG (35-48); ABG PH 7.385 (7.35-7.45); ABG TCO2 21.6 MMOL/L (23-27); Glucose Heart Surgery 113 MG/DL (74-106); Hematocrit Heart Surgery 36.6 PERCENT (42-52); Hemoglobin Heart Surgery 11.9 G/DL (14.0-18.0); Ionized Calcium Arterial 1.11 MMOL/L (1.21-1.46); PCO2 Patient Temp Arterial 40.7 MMHG; PH Patient Temp Arterial 7.385; Patient Temperature 37 CELCIUS; Sodium Heart/CVR 139 MMOL/L (135-145)
[2018-09-22 08:23] LABS: Apearance,Urine CLEAR (Clear); Bilirubin,Urine Negative (Negative); Blood, Urine Negative (Negative); Glucose,Urine (UA) Negative (Negative); Hyaline Casts,Urine 5 /LPF (0-3); Ketones,Urine Negative (Negative); Mucus,Urine Occasional /LPF (Occasional); Nitrite,Urine Negative (Negative); Protein,Urine Negative; RBC,Urine 2 /HPF (0-4); Urine Color Yellow (Yellow); Urine Specific Gravity 1.013 (1.001-1.035); Urine Urobilinogen < 2.0 EU/DL (0.2-1.0); WBC,Urine 1 /HPF (0-6)
[2018-09-22] MEDS ORDERED: CEFUROXIME INJ 1,500 MG in SYRINGE 1 EACH IV ONE (08:29)
[2018-09-22 09:09] LABS: Hematocrit Heart Surgery 25.5 PERCENT (42-52); Hemoglobin Heart Surgery 8.2 G/DL (14.0-18.0); PCO2 Patient Temp Venous 31.5 MM HG; PH Patient Temp Venous 7.483; PO2 Patient Temp Venous 39.3 MM HG; Potassium Heart/CVR 5.1 MMOL/L (3.5-5.1); VBG Base Excess 0.6 MEQ/L (0-4); VBG HCO3 24.8 MEQ/L (24-28); VBG Oxygen Saturation 84.5 %; VBG PCO2 34.7 MMHG (41-51); VBG PH 7.453; VBG PO2 45.1 MMHG (17-40)
[2018-09-22] MEDS ORDERED: MANNITOL 100 GM/500 ML BAG IV ONE (09:49)
[2018-09-22] MEDS ORDERED: HEPARIN 10,000 UNIT/10 ML VIAL ONE (09:50)
[2018-09-22] MEDS ORDERED: DEXTROSE 5% KCL 20 MEQ 20 MEQ/1,000 ML BAG IV ONE (09:50)
[2018-09-22] MEDS ORDERED: ALBUMIN 25% 25 GM/100 ML VIAL IV ONE (09:50)
[2018-09-22] MEDS ORDERED: SODIUM BICARBONATE 50 MEQ/50 ML SYRINGE IV ONE ×4 (09:50→18:35)
[2018-09-22] MEDS ORDERED: FUROSEMIDE 20 MG/2 ML VIAL ONE (09:50)
[2018-09-22] MEDS ORDERED: methylPREDNISolone SOD SUC 1,000 MG/8 ML VIAL ONE (09:50)
[2018-09-22] MEDS ORDERED: PROTAMINE SULFATE 250 MG/25 ML VIAL IV ONE (09:50)
[2018-09-22] MEDS ORDERED: CALCIUM CHLORIDE 1,000 MG/10 ML SYRINGE IV ONE (09:52)
[2018-09-22] MEDS ORDERED: ALBUMIN 5% 12.5 GM/250 ML VIAL IV ONE (09:52)
[2018-09-22 09:54] LABS: ABG Base Excess -3.3 MMOL/L (-2.5-2.5); ABG HCO3 21.7 MMOL/L (20-26); ABG PCO2 34.7 MM HG (35-48); Glucose Heart Surgery 191 MG/DL (74-106); Hematocrit Heart Surgery 32.5 PERCENT (42-52); Hemoglobin Heart Surgery 10.5 G/DL (14.0-18.0); PCO2 Patient Temp Arterial 34.7 MMHG; Patient Temperature 37 CELCIUS; Potassium Heart/CVR 3.9 MMOL/L (3.5-5.1); Sodium Heart/CVR 135 MMOL/L (135-145)
[2018-09-22] MEDS ORDERED: POTASSIUM CHLORIDE RIDER 100 ML IV ONE (10:20)
[2018-09-22] MEDS ORDERED: PHENYLEPHRINE DRIP 40 MG/250 ML PREMIX IV ONE (10:20)
[2018-09-22] MEDS ORDERED: CALCIUM CHLORIDE 1,000 MG/10 ML VIAL IV ONE (10:52)
[2018-09-22] MEDS ORDERED: SUFentanil 250 MCG/5 ML AMP ONE (10:53)
[2018-09-22] MEDS ORDERED: SEVOFLURANE 1 UNIT/15 MINUTE INH ONE (10:53)
[2018-09-22] MEDS ORDERED: HEPARIN/NACL 0.9% 2 UNITS/ML 500 ML IV ONE (10:53)
[2018-09-22] MEDS ORDERED: MIDAZOLAM 10 MG/2 ML VIAL ONE (10:53)
[2018-09-22] MEDS ORDERED: PHENYLEPHRINE DRIP 20 MG/250 ML PREMIX IV ONE (10:53)
[2018-09-22] MEDS ORDERED: ePHEDrine 50 MG/ML AMP ONE (10:53)
[2018-09-22] MEDS ORDERED: SODIUM CHLORIDE 0.9% 250 ML IV ONE (10:54)
[2018-09-22] MEDS ORDERED: ONDANSETRON 4 MG/2 ML VIAL IV PRN (10:54)
[2018-09-22] MEDS ORDERED: MIDAZOLAM 2 MG/2 ML VIAL IV PRN (10:54)
[2018-09-22] MEDS ORDERED: DEXTROSE 50% 25 GM/50 ML SYRINGE IV PRN ×2 (10:54)
[2018-09-22] MEDS ORDERED: SODIUM CHLORIDE 0.9% 2,000 ML IV ONE (10:54)
[2018-09-22] MEDS ORDERED: MORPHINE 10 MG/1 ML VIAL IV PRN (10:54)
[2018-09-22] MEDS ORDERED: CALCIUM CHLORIDE 1,000 MG/10 ML SYRINGE IV PRN (10:54)
[2018-09-22] MEDS ORDERED: ETOMIDATE 40 MG/20 ML VIAL IV ONE (10:54)
[2018-09-22] MEDS ORDERED: CHLORHEXIDINE 4% SOLN 118 ML BOTTLE TOP PRN (10:54)
[2018-09-22] MEDS ORDERED: LACTATED RINGERS 2,000 ML IV ONE (10:54)
[2018-09-22] MEDS ORDERED: MAGNESIUM SULF RIDER 4 GM in PREMIX 1 EACH IV PRN (10:54)
[2018-09-22] MEDS ORDERED: INSULIN REGULAR 100 UNIT/ML IV PRN (10:54)
[2018-09-22] MEDS ORDERED: MAGNESIUM SULF RIDER 2 GM in PREMIX 1 EACH IV PRN (10:54)
[2018-09-22] MEDS ORDERED: NITROGLYCERIN DRIP 50 MG/250 ML BOTTLE IV ONE (10:54)
[2018-09-22] MEDS ORDERED: SODIUM CHLORIDE 0.9% 100 ML IV ONE (10:54)
[2018-09-22] MEDS ORDERED: ACETAMINOPHEN 650 MG SUPP RECTAL PRN (10:54)
[2018-09-22] MEDS: SODIUM CHLORIDE 0.45% 1,000 ML IV SCH ×2 (11:30→11:31)
[2018-09-22] MEDS: POTASSIUM CHLORIDE RIDER 20 MEQ in PREMIX 1 EACH IV PRN (11:31)
[2018-09-22] MEDS ORDERED: PHENYLEPHRINE DRIP 40 MG/250 ML PREMIX IV PRN (11:32)
[2018-09-22 11:58] LABS: ABG Base Excess -5.7 MMOL/L (-2.5-2.5); ABG HCO3 19.8 MMOL/L (20-26); ABG Oxygen Saturation 97.2 % (95-100); ABG PCO2 32.4 MM HG (35-48); ABG PO2 91.5 MM HG (80-95); ABG TCO2 16.7 MMOL/L (23-27); Glucose Heart Surgery 171 MG/DL (74-106); Hematocrit Heart Surgery 36.2 PERCENT (42-52); Hemoglobin Heart Surgery 11.7 G/DL (14.0-18.0); Potassium Heart/CVR 3.7 MMOL/L (3.5-5.1)
[2018-09-22] MEDS: SODIUM CHLORIDE 0.9% 250 ML IV PRN ×8 (12:02→17:09)
[2018-09-22 12:03] LABS: Basophils % 0.3 % (0.0-0.8); Eosinophils # 0.1 10*3/uL (0.0-0.87); Eosinophils % 0.5 % (0.00-10.9); Hematocrit 33.9 VOL% (42.0-52.0); Immature Granulocytes % 0.9 %; Lymphocytes # 1.2 10*3/uL (1.4-4.0); Lymphocytes % 11.1 % (21.2-54.2); Mean Corpuscular HGB Conc 32.4 GM/DL (32-36); Mean Corpuscular Hemoglobin 31 PG (27-34); Mean Platelet Volume 12.4 FL (9.6-12.0); Monocytes # 0.5 10*3/uL (0.11-0.8); Monocytes % 4.5 % (1.7-12.7); Neutrophils # 9.2 10*3/uL (1.4-7.4); Neutrophils % 82.7 % (38.7-73.9); Platelet Count 119 T/CUMM (130-400); Red Blood Count 3.57 MC/CUMM (3.8-5.5); Red Cell Distribution Width 14.1 % (9.3-17.3); White Blood Count 11.1 T/CUMM (4-12)
[2018-09-22 12:12] LABS: INR 1.1; PT Patient Result 11.4 SECS; Partial Thromboplastin Time 26.6 SECS (0-40)
[2018-09-22 12:16] LABS: Blood Urea Nitrogen 15 MG/DL (7-18); Calcium 8.2 MG/DL (8.5-10.1); Glucose 162 MG/DL (74-106); Osmolality,Calculated 285.3 MOS/KG (273-304); Potassium 3.7 MMOL/L (3.5-5.1); Sodium 141 MMOL/L (136-145)
[2018-09-22] MEDS ORDERED: ASPIRIN 325 MG TABLET PO ONE (12:30)
[2018-09-22] MEDS ORDERED: DOBUTamine 0 MG/0 ML PREMIX IV ONE (12:42)
[2018-09-22] MEDS: ALBUMIN 5% 12.5 GM in PREMIX 1 EACH IV PRN ×2 (13:00→13:59)
[2018-09-22] MEDS: POTASSIUM CHLORIDE RIDER 10 MEQ in PREMIX 1 EACH IV PRN (13:02)
[2018-09-22 18:06] LABS: ABG Base Excess -8.2 MMOL/L (-2.5-2.5); ABG HCO3 18.6 MMOL/L (20-26); ABG PCO2 43.4 MM HG (35-48); ABG PO2 113.8 MM HG (80-95); ABG TCO2 19.9 MMOL/L (23-27); Glucose Heart Surgery 187 MG/DL (74-106); Hemoglobin Heart Surgery 11.6 G/DL (14.0-18.0); Potassium Heart/CVR 4.4 MMOL/L (3.5-5.1)
[2018-09-22] MEDS: ALBUTEROL/IPRATROPIUM 3 ML NEB RESP TX SCH ×2 (18:40→23:10)
[2018-09-22] MEDS ORDERED: CEFUROXIME INJ 1,500 MG in SYRINGE 1 EACH IV SCH ×2 (18:54→21:00)
[2018-09-22] MEDS: SODIUM BICARB INJ 75 MEQ in SODIUM CHLORIDE 0.45% 1,000 ML IV SCH (19:13)
[2018-09-22] MEDS: CEFUROXIME INJ 1,500 MG in SYRINGE 1 EACH IV SCH (20:11)
[2018-09-22 20:14] LABS: ABG Base Excess -3.9 MMOL/L (-2.5-2.5); ABG HCO3 21.2 MMOL/L (20-26); ABG Oxygen Saturation 97.2 % (95-100); ABG PCO2 38.6 MM HG (35-48); ABG PO2 97.4 MM HG (80-95); ABG TCO2 19.3 MMOL/L (23-27); Glucose Heart Surgery 211 MG/DL (74-106); Hemoglobin Heart Surgery 10.7 G/DL (14.0-18.0); Potassium Heart/CVR 4.5 MMOL/L (3.5-5.1)
[2018-09-22] MEDS ORDERED: INSULIN REGULAR DRIP 100 ML IV PRN (20:24)
[2018-09-22] MEDS: CHLORHEXIDINE 0.12% ORAL RINSE 60 ML BOTTLE SWISH/SPIT SCH (20:45)
[2018-09-22 23:41] LABS: ABG Base Excess -4.3 MMOL/L (-2.5-2.5); ABG HCO3 20.9 MMOL/L (20-26); ABG Oxygen Saturation 97.5 % (95-100); ABG PCO2 40.1 MM HG (35-48); ABG PH 7.333 (7.35-7.45); ABG TCO2 19.3 MMOL/L (23-27); Glucose Heart Surgery 186 MG/DL (74-106); Hematocrit Heart Surgery 33.6 PERCENT (42-52); Hemoglobin Heart Surgery 10.9 G/DL (14.0-18.0); Potassium Heart/CVR 3.9 MMOL/L (3.5-5.1)
[2018-09-23] MEDS: ALBUTEROL/IPRATROPIUM 3 ML NEB RESP TX SCH ×6 (03:10→23:04)
[2018-09-23] MEDS: MORPHINE 4 MG/1 ML VIAL IV PRN ×3 (03:12→15:19)
[2018-09-23] MEDS: SODIUM BICARB INJ 75 MEQ in SODIUM CHLORIDE 0.45% 1,000 ML IV SCH (03:13)
[2018-09-23] MEDS: SODIUM CHLORIDE 0.45% 1,000 ML IV SCH ×2 (03:13→08:16)
[2018-09-23 03:18] LABS: Basophils % 0.1 % (0.0-0.8); Hematocrit 29.8 VOL% (42.0-52.0); Hemoglobin 9.5 GM/DL (14.0-18.0); Immature Granulocytes % 0.5 %; Immature Granulocytes Absolute 0.05 #; Lymphocytes # 0.5 10*3/uL (1.4-4.0); Lymphocytes % 4.8 % (21.2-54.2); Mean Corpuscular HGB Conc 31.9 GM/DL (32-36); Mean Corpuscular Hemoglobin 31 PG (27-34); Mean Corpuscular Volume 96.8 FL (87-102); Mean Platelet Volume 12.1 FL (9.6-12.0); Monocytes # 0.4 10*3/uL (0.11-0.8); Monocytes % 4.2 % (1.7-12.7); Neutrophils # 8.9 10*3/uL (1.4-7.4); Neutrophils % 90.4 % (38.7-73.9); Platelet Count 89 T/CUMM (130-400); Red Blood Count 3.08 MC/CUMM (3.8-5.5); Red Cell Distribution Width 14.4 % (9.3-17.3); White Blood Count 9.9 T/CUMM (4-12)
[2018-09-23 03:52] LABS: Calcium 7.6 MG/DL (8.5-10.1); Osmolality,Calculated 288.8 MOS/KG (273-304); Potassium 3.7 MMOL/L (3.5-5.1)
[2018-09-23 03:54] LABS: Band Neutrophils 2 % (0-10); Lymphocytes 2 % (20-55); Platelet Estimate Decreased; Polychromasia Few; Segmented Neutrophils 95 % (50-85); Total Cells Counted 100
[2018-09-23] MEDS: POTASSIUM CHLORIDE RIDER 20 MEQ in PREMIX 1 EACH IV PRN (04:15)
[2018-09-23] MEDS: POTASSIUM CHLORIDE RIDER 10 MEQ in PREMIX 1 EACH IV PRN (04:47)
[2018-09-23] MEDS ORDERED: FUROSEMIDE 40 MG/4 ML VIAL IV ONE (08:05)
[2018-09-23] MEDS: PANTOPRAZOLE 40 MG VIAL IV SCH (08:17)
[2018-09-23] MEDS: CEFUROXIME INJ 1,500 MG in SYRINGE 1 EACH IV SCH ×2 (08:18→21:36)
[2018-09-23] MEDS: FUROSEMIDE 40 MG TABLET PO SCH (08:23)
[2018-09-23] MEDS: ASPIRIN EC 325 MG TABLET PO SCH (08:23)
[2018-09-23] MEDS ORDERED: CLOPIDOGREL 75 MG TABLET PO SCH ×2 (09:00→09:30)
[2018-09-23] MEDS: ASPIRIN 325 MG TABLET PO SCH (09:13)
[2018-09-23] MEDS: PANTOPRAZOLE 40 MG TABLET PO SCH (09:14)
[2018-09-23] MEDS: ERGOCALCIFEROL 50,000 UNIT CAPSULE PO SCH (09:19)
[2018-09-23] MEDS: ALLOPURINOL 300 MG TABLET PO SCH (09:19)
[2018-09-23] MEDS: LEVOTHYROXINE 25 MCG TABLET PO SCH (09:19)
[2018-09-23] MEDS: ASCORBIC ACID 500 MG TABLET PO SCH ×2 (09:20→21:28)
[2018-09-23] MEDS: TAMSULOSIN 0.4 MG CAPSULE PO SCH (09:20)
[2018-09-23] MEDS: GABAPENTIN 300 MG CAPSULE PO SCH ×3 (09:21→21:29)
[2018-09-23] MEDS: CHLORHEXIDINE 0.12% ORAL RINSE 60 ML BOTTLE SWISH/SPIT SCH ×2 (09:22→21:29)
[2018-09-23] MEDS ORDERED: TUBERCULIN SKIN TEST 0.1 ML SYRINGE INTRADERM ONE (15:37)
[2018-09-23] MEDS: ATORVASTATIN 40 MG TABLET PO SCH (21:29)
[2018-09-23] MEDS: MONTELUKAST 10 MG TABLET PO SCH (21:29)
[2018-09-23] MEDS: METOPROLOL TARTRATE 25 MG TABLET PO SCH (21:29)
[2018-09-23] MEDS ORDERED: LEVALBUTEROL 0.63 MG/3 ML NEB RESP TX PRN (21:51)
[2018-09-24] MEDS ORDERED: LEVALBUTEROL 0.63 MG/3 ML NEB RESP TX SCH (01:00)
[2018-09-24] MEDS: ALBUTEROL/IPRATROPIUM 3 ML NEB RESP TX SCH ×6 (03:08→22:34)
[2018-09-24 04:24] LABS: Basophils % 0.1 % (0.0-0.8); Hematocrit 27.6 VOL% (42.0-52.0); Hemoglobin 8.9 GM/DL (14.0-18.0); Immature Granulocytes % 0.8 %; Immature Granulocytes Absolute 0.11 #; Lymphocytes # 0.4 10*3/uL (1.4-4.0); Lymphocytes % 3.1 % (21.2-54.2); Mean Corpuscular HGB Conc 32.2 GM/DL (32-36); Mean Corpuscular Hemoglobin 32 PG (27-34); Mean Corpuscular Volume 98.2 FL (87-102); Mean Platelet Volume 12.4 FL (9.6-12.0); Monocytes # 0.8 10*3/uL (0.11-0.8); Monocytes % 6.2 % (1.7-12.7); Neutrophils # 11.9 10*3/uL (1.4-7.4); Neutrophils % 89.8 % (38.7-73.9); Red Blood Count 2.81 MC/CUMM (3.8-5.5); Red Cell Distribution Width 14.6 % (9.3-17.3); White Blood Count 13.3 T/CUMM (4-12)
[2018-09-24 04:25] LABS: Platelet Count 82 T/CUMM (130-400)
[2018-09-24 04:41] LABS: Calcium 7.4 MG/DL (8.5-10.1); Osmolality,Calculated 289.3 MOS/KG (273-304); Potassium 4.2 MMOL/L (3.5-5.1)
[2018-09-24 04:57] LABS: Band Neutrophils 6 % (0-10); Lymphocytes 2 % (20-55); Myelocytes 1 %; Segmented Neutrophils 87 % (50-85)
[2018-09-24 04:58] LABS: Hypochromasia 1+; Platelet Estimate Decreased
[2018-09-24 04:59] LABS: Total Cells Counted 100
[2018-09-24] MEDS: GABAPENTIN 300 MG CAPSULE PO SCH ×3 (08:21→21:15)
[2018-09-24] MEDS: METOPROLOL TARTRATE 25 MG TABLET PO SCH ×2 (08:21→21:19)
[2018-09-24] MEDS: ASCORBIC ACID 500 MG TABLET PO SCH ×2 (08:21→21:14)
[2018-09-24] MEDS: PANTOPRAZOLE 40 MG TABLET PO SCH (08:22)
[2018-09-24] MEDS: ASPIRIN EC 325 MG TABLET PO SCH (08:22)
[2018-09-24] MEDS: PANTOPRAZOLE 40 MG VIAL IV SCH (08:22)
[2018-09-24] MEDS: LEVOTHYROXINE 25 MCG TABLET PO SCH (08:22)
[2018-09-24] MEDS: ASPIRIN 325 MG TABLET PO SCH (08:22)
[2018-09-24] MEDS: ALLOPURINOL 300 MG TABLET PO SCH (08:22)
[2018-09-24] MEDS: FUROSEMIDE 40 MG TABLET PO SCH (08:22)
[2018-09-24] MEDS: TAMSULOSIN 0.4 MG CAPSULE PO SCH (08:22)
[2018-09-24] MEDS: CHLORHEXIDINE 0.12% ORAL RINSE 60 ML BOTTLE SWISH/SPIT SCH ×2 (08:28→21:22)
[2018-09-24] MEDS ORDERED: SODIUM CHLORIDE 0.9% 1,000 ML IV PRN (11:42)
[2018-09-24] MEDS ORDERED: FUROSEMIDE 40 MG/4 ML VIAL IV SCH (12:00)
[2018-09-24] MEDS: INSULIN REGULAR 100 UNIT/ML SUBCUT SCH ×2 (16:35→21:21)
[2018-09-24 19:20] LABS: Hematocrit 30.5 VOL% (42.0-52.0); Hemoglobin 9.8 GM/DL (14.0-18.0)
[2018-09-24] MEDS: BENZONATATE 100 MG CAPSULE PO PRN (21:14)
[2018-09-24] MEDS: MONTELUKAST 10 MG TABLET PO SCH (21:15)
[2018-09-24] MEDS: ATORVASTATIN 40 MG TABLET PO SCH (21:15)
[2018-09-25] MEDS: INSULIN REGULAR 100 UNIT/ML SUBCUT SCH ×6 (01:07→21:10)
[2018-09-25] MEDS: ALBUTEROL/IPRATROPIUM 3 ML NEB RESP TX SCH ×6 (02:28→23:35)
[2018-09-25 04:48] LABS: Basophils % 0.1 % (0.0-0.8); Hematocrit 29.2 VOL% (42.0-52.0); Hemoglobin 9.4 GM/DL (14.0-18.0); Immature Granulocytes % 1.9 %; Immature Granulocytes Absolute 0.21 #; Lymphocytes # 0.3 10*3/uL (1.4-4.0); Lymphocytes % 2.7 % (21.2-54.2); Mean Corpuscular HGB Conc 32.2 GM/DL (32-36); Mean Corpuscular Hemoglobin 31 PG (27-34); Mean Corpuscular Volume 96.4 FL (87-102); Mean Platelet Volume 13.3 FL (9.6-12.0); Monocytes # 0.7 10*3/uL (0.11-0.8); Monocytes % 6.3 % (1.7-12.7); NRBC # 0.03 10*3/uL; Neutrophils # 9.7 10*3/uL (1.4-7.4); Red Blood Count 3.03 MC/CUMM (3.8-5.5); Red Cell Distribution Width 15.4 % (9.3-17.3); White Blood Count 10.9 T/CUMM (4-12)
[2018-09-25 04:53] LABS: Platelet Count 87 T/CUMM (130-400)
[2018-09-25 05:09] LABS: Calcium 7.5 MG/DL (8.5-10.1); Osmolality,Calculated 291.1 MOS/KG (273-304); Potassium 3.7 MMOL/L (3.5-5.1)
[2018-09-25 05:26] LABS: Anisocytosis Slight; Band Neutrophils 2 % (0-10); Lymphocytes 4 % (20-55); Macrocytosis Slight; Platelet Estimate Decreased; Segmented Neutrophils 91 % (50-85); Total Cells Counted 100
[2018-09-25] MEDS: GABAPENTIN 300 MG CAPSULE PO SCH ×3 (09:02→21:12)
[2018-09-25] MEDS: TAMSULOSIN 0.4 MG CAPSULE PO SCH (09:02)
[2018-09-25] MEDS: METOPROLOL TARTRATE 25 MG TABLET PO SCH ×2 (09:02→21:12)
[2018-09-25] MEDS: ASPIRIN 325 MG TABLET PO SCH (09:02)
[2018-09-25] MEDS: ASCORBIC ACID 500 MG TABLET PO SCH ×2 (09:02→21:12)
[2018-09-25] MEDS: ASPIRIN EC 325 MG TABLET PO SCH (09:03)
[2018-09-25] MEDS: PANTOPRAZOLE 40 MG TABLET PO SCH (09:03)
[2018-09-25] MEDS: BENZONATATE 100 MG CAPSULE PO PRN ×2 (09:03→21:11)
[2018-09-25] MEDS: PANTOPRAZOLE 40 MG VIAL IV SCH (09:03)
[2018-09-25] MEDS: LEVOTHYROXINE 25 MCG TABLET PO SCH (09:03)
[2018-09-25] MEDS: FUROSEMIDE 40 MG TABLET PO SCH (09:03)
[2018-09-25] MEDS: ALLOPURINOL 300 MG TABLET PO SCH (09:03)
[2018-09-25] MEDS: CHLORHEXIDINE 0.12% ORAL RINSE 60 ML BOTTLE SWISH/SPIT SCH ×2 (09:03→21:16)
[2018-09-25] MEDS ORDERED: ACETYLCYSTEINE 20% 800 MG/4 ML VIAL RESP TX ONE (12:59)
[2018-09-25] MEDS: ATORVASTATIN 40 MG TABLET PO SCH (21:12)
[2018-09-25] MEDS: MONTELUKAST 10 MG TABLET PO SCH (21:12)
[2018-09-26] MEDS: INSULIN REGULAR 100 UNIT/ML SUBCUT SCH ×6 (00:25→21:17)
[2018-09-26] MEDS: ALBUTEROL/IPRATROPIUM 3 ML NEB RESP TX SCH ×5 (03:26→19:46)
[2018-09-26 05:12] LABS: Basophils % 0.1 % (0.0-0.8); Eosinophils % 0.1 % (0.00-10.9); Hemoglobin 9.4 GM/DL (14.0-18.0); Immature Granulocytes % 2.2 %; Immature Granulocytes Absolute 0.19 #; Lymphocytes # 0.9 10*3/uL (1.4-4.0); Lymphocytes % 10.1 % (21.2-54.2); Mean Corpuscular HGB Conc 31.3 GM/DL (32-36); Mean Corpuscular Hemoglobin 31 PG (27-34); Mean Corpuscular Volume 98.7 FL (87-102); Mean Platelet Volume 12.5 FL (9.6-12.0); Monocytes # 0.6 10*3/uL (0.11-0.8); Monocytes % 7.4 % (1.7-12.7); NRBC # 0.02 10*3/uL; Neutrophils # 6.9 10*3/uL (1.4-7.4); Neutrophils % 80.1 % (38.7-73.9); Platelet Count 107 T/CUMM (130-400); Red Blood Count 3.04 MC/CUMM (3.8-5.5); Red Cell Distribution Width 15.5 % (9.3-17.3); White Blood Count 8.6 T/CUMM (4-12)
[2018-09-26 05:23] LABS: Calcium 7.4 MG/DL (8.5-10.1); Osmolality,Calculated 291.8 MOS/KG (273-304); Potassium 3.6 MMOL/L (3.5-5.1)
[2018-09-26] MEDS ORDERED: INFLUENZA VIRUS VACCINE 0.5 ML SYRINGE IM ONE (06:00)
[2018-09-26] MEDS: ALLOPURINOL 300 MG TABLET PO SCH (09:09)
[2018-09-26] MEDS: GABAPENTIN 300 MG CAPSULE PO SCH ×3 (09:09→21:22)
[2018-09-26] MEDS: ASPIRIN 325 MG TABLET PO SCH (09:09)
[2018-09-26] MEDS: LEVOTHYROXINE 25 MCG TABLET PO SCH (09:09)
[2018-09-26] MEDS: METOPROLOL TARTRATE 25 MG TABLET PO SCH ×2 (09:09→21:22)
[2018-09-26] MEDS: FUROSEMIDE 40 MG TABLET PO SCH ×2 (09:09→15:40)
[2018-09-26] MEDS: PANTOPRAZOLE 40 MG TABLET PO SCH (09:10)
[2018-09-26] MEDS: ASCORBIC ACID 500 MG TABLET PO SCH ×2 (09:10→21:22)
[2018-09-26] MEDS: BENZONATATE 100 MG CAPSULE PO PRN ×2 (09:10→21:22)
[2018-09-26] MEDS: TAMSULOSIN 0.4 MG CAPSULE PO SCH (09:10)
[2018-09-26] MEDS: CHLORHEXIDINE 0.12% ORAL RINSE 60 ML BOTTLE SWISH/SPIT SCH ×2 (09:14→21:24)
[2018-09-26] MEDS ORDERED: FUROSEMIDE 40 MG/4 ML VIAL IV ONE (11:06)
[2018-09-26] MEDS: MONTELUKAST 10 MG TABLET PO SCH (21:19)
[2018-09-26] MEDS: ATORVASTATIN 40 MG TABLET PO SCH (21:22)
[2018-09-27] MEDS: ALBUTEROL/IPRATROPIUM 3 ML NEB RESP TX SCH ×6 (00:26→19:35)
[2018-09-27] MEDS: INSULIN REGULAR 100 UNIT/ML SUBCUT SCH ×7 (01:10→20:39)
[2018-09-27 05:20] LABS: Basophils % 0.1 % (0.0-0.8); Eosinophils # 0.2 10*3/uL (0.0-0.87); Hematocrit 31.8 VOL% (42.0-52.0); Immature Granulocytes % 2.3 %; Immature Granulocytes Absolute 0.18 #; Lymphocytes # 1.2 10*3/uL (1.4-4.0); Lymphocytes % 15.1 % (21.2-54.2); Mean Corpuscular HGB Conc 31.4 GM/DL (32-36); Mean Corpuscular Hemoglobin 31 PG (27-34); Mean Corpuscular Volume 97.5 FL (87-102); Mean Platelet Volume 12.6 FL (9.6-12.0); Monocytes # 0.7 10*3/uL (0.11-0.8); Monocytes % 8.5 % (1.7-12.7); NRBC # 0.02 10*3/uL; Neutrophils # 5.5 10*3/uL (1.4-7.4); Platelet Count 117 T/CUMM (130-400); Red Blood Count 3.26 MC/CUMM (3.8-5.5); Red Cell Distribution Width 15.2 % (9.3-17.3); White Blood Count 7.7 T/CUMM (4-12)
[2018-09-27 05:39] LABS: Calcium 7.8 MG/DL (8.5-10.1); Osmolality,Calculated 288.1 MOS/KG (273-304)
[2018-09-27] MEDS: POTASSIUM CHLORIDE RIDER 20 MEQ in PREMIX 1 EACH IV PRN ×2 (06:00→07:45)
[2018-09-27] MEDS: ASPIRIN 325 MG TABLET PO SCH (08:25)
[2018-09-27] MEDS: FUROSEMIDE 40 MG TABLET PO SCH ×2 (08:25→15:25)
[2018-09-27] MEDS: ASCORBIC ACID 500 MG TABLET PO SCH ×2 (08:25→20:40)
[2018-09-27] MEDS: BENZONATATE 100 MG CAPSULE PO PRN ×2 (08:25→20:40)
[2018-09-27] MEDS: LEVOTHYROXINE 25 MCG TABLET PO SCH (08:25)
[2018-09-27] MEDS: METOPROLOL TARTRATE 25 MG TABLET PO SCH ×2 (08:26→20:40)
[2018-09-27] MEDS: ALLOPURINOL 300 MG TABLET PO SCH (08:26)
[2018-09-27] MEDS: GABAPENTIN 300 MG CAPSULE PO SCH ×3 (08:33→20:40)
[2018-09-27] MEDS: PANTOPRAZOLE 40 MG TABLET PO SCH (08:33)
[2018-09-27] MEDS: CHLORHEXIDINE 0.12% ORAL RINSE 60 ML BOTTLE SWISH/SPIT SCH ×2 (08:34→20:41)
[2018-09-27] MEDS: TAMSULOSIN 0.4 MG CAPSULE PO SCH (08:34)
[2018-09-27 13:04] LABS: Potassium 3.6 MMOL/L (3.5-5.1)
[2018-09-27] MEDS ORDERED: MAGNESIUM SULF RIDER 2 GM in PREMIX 1 EACH IV ONE (13:37)
[2018-09-27] MEDS: LEVOFLOXACIN INJ 750 MG in PREMIX 1 EACH IV SCH (15:22)
[2018-09-27] MEDS: MONTELUKAST 10 MG TABLET PO SCH (20:41)
[2018-09-27] MEDS: ATORVASTATIN 40 MG TABLET PO SCH (20:41)
[2018-09-28] MEDS: ALBUTEROL/IPRATROPIUM 3 ML NEB RESP TX SCH ×4 (00:20→10:25)
[2018-09-28 04:31] LABS: Basophils % 0.1 % (0.0-0.8); Eosinophils # 0.4 10*3/uL (0.0-0.87); Eosinophils % 3.9 % (0.00-10.9); Hematocrit 32.8 VOL% (42.0-52.0); Hemoglobin 10.7 GM/DL (14.0-18.0); Immature Granulocytes Absolute 0.19 #; Lymphocytes # 1.1 10*3/uL (1.4-4.0); Lymphocytes % 11.7 % (21.2-54.2); Mean Corpuscular HGB Conc 32.6 GM/DL (32-36); Mean Corpuscular Hemoglobin 31 PG (27-34); Mean Corpuscular Volume 95.6 FL (87-102); Mean Platelet Volume 11.5 FL (9.6-12.0); Monocytes # 0.8 10*3/uL (0.11-0.8); Monocytes % 8.3 % (1.7-12.7); NRBC # 0.02 10*3/uL; Neutrophils # 7.1 10*3/uL (1.4-7.4); Platelet Count 129 T/CUMM (130-400); Red Blood Count 3.43 MC/CUMM (3.8-5.5); Red Cell Distribution Width 14.6 % (9.3-17.3); White Blood Count 9.6 T/CUMM (4-12)
[2018-09-28 05:02] LABS: Calcium 8.1 MG/DL (8.5-10.1); Osmolality,Calculated 278.8 MOS/KG (273-304); Potassium 3.3 MMOL/L (3.5-5.1)
[2018-09-28] MEDS: POTASSIUM CHLORIDE RIDER 20 MEQ in PREMIX 1 EACH IV PRN ×2 (06:30→09:50)
[2018-09-28] MEDS: ALLOPURINOL 300 MG TABLET PO SCH (08:33)
[2018-09-28] MEDS: POTASSIUM CHLORIDE 20 MEQ TABLET PO SCH (08:34)
[2018-09-28] MEDS: PANTOPRAZOLE 40 MG TABLET PO SCH (08:34)
[2018-09-28] MEDS: BENZONATATE 100 MG CAPSULE PO PRN ×2 (08:34→21:00)
[2018-09-28] MEDS: ASCORBIC ACID 500 MG TABLET PO SCH ×2 (08:34→21:00)
[2018-09-28] MEDS: TAMSULOSIN 0.4 MG CAPSULE PO SCH (08:34)
[2018-09-28] MEDS: GABAPENTIN 300 MG CAPSULE PO SCH ×3 (08:34→21:01)
[2018-09-28] MEDS: INSULIN REGULAR 100 UNIT/ML SUBCUT SCH ×4 (08:35→21:01)
[2018-09-28] MEDS: ASPIRIN 325 MG TABLET PO SCH (08:35)
[2018-09-28] MEDS: METOPROLOL TARTRATE 25 MG TABLET PO SCH ×2 (08:35→21:01)
[2018-09-28] MEDS: FUROSEMIDE 40 MG TABLET PO SCH ×2 (08:35→16:48)
[2018-09-28] MEDS: CHLORHEXIDINE 0.12% ORAL RINSE 60 ML BOTTLE SWISH/SPIT SCH ×2 (08:42→21:10)
[2018-09-28] MEDS: LEVOTHYROXINE 25 MCG TABLET PO SCH (08:42)
[2018-09-28] MEDS ORDERED: SPIRONOLACTONE 25 MG TABLET PO SCH (09:00)
[2018-09-28] MEDS ORDERED: SPIRONOLACTONE 50 MG TABLET PO SCH (09:00)
[2018-09-28] MEDS ORDERED: POTASSIUM CHLORIDE 20 MEQ TABLET PO ONE ×2 (09:43→14:00)
[2018-09-28] MEDS: LEVOFLOXACIN INJ 750 MG in PREMIX 1 EACH IV SCH (15:38)
[2018-09-28] MEDS: ZINC OXIDE 16% PASTE 57 GM TUBE TOP SCH ×2 (17:12→21:02)
[2018-09-28] MEDS ORDERED: MIDAZOLAM 2 MG/2 ML VIAL IV ONE (18:21)
[2018-09-28] MEDS: methylPREDNISolone SOD SUC 40 MG/1 ML VIAL IV SCH (19:02)
[2018-09-28] MEDS: IPRATROPIUM 500 MCG/2.5 ML NEB RESP TX SCH (19:14)
[2018-09-28] MEDS: DORNASE ALFA 2.5 MG/2.5 ML VIAL RESP TX SCH (19:15)
[2018-09-28] MEDS: ATORVASTATIN 40 MG TABLET PO SCH (21:01)
[2018-09-28] MEDS: MONTELUKAST 10 MG TABLET PO SCH (21:11)
[2018-09-29] MEDS: IPRATROPIUM 500 MCG/2.5 ML NEB RESP TX SCH ×4 (02:30→20:09)
[2018-09-29 04:30] LABS: Eosinophils % 0.1 % (0.00-10.9); Hematocrit 34.8 VOL% (42.0-52.0); Hemoglobin 11.1 GM/DL (14.0-18.0); Immature Granulocytes % 2.6 %; Immature Granulocytes Absolute 0.25 #; Lymphocytes # 0.5 10*3/uL (1.4-4.0); Lymphocytes % 4.7 % (21.2-54.2); Mean Corpuscular HGB Conc 31.9 GM/DL (32-36); Mean Corpuscular Hemoglobin 30 PG (27-34); Mean Corpuscular Volume 94.8 FL (87-102); Mean Platelet Volume 11.7 FL (9.6-12.0); Monocytes # 0.2 10*3/uL (0.11-0.8); Monocytes % 2.1 % (1.7-12.7); Neutrophils # 8.6 10*3/uL (1.4-7.4); Neutrophils % 90.5 % (38.7-73.9); Platelet Count 149 T/CUMM (130-400); Red Blood Count 3.67 MC/CUMM (3.8-5.5); Red Cell Distribution Width 14.6 % (9.3-17.3); White Blood Count 9.5 T/CUMM (4-12)
[2018-09-29 04:38] LABS: PT Patient Result 10.9 SECS; Partial Thromboplastin Time 22.9 SECS (0-40)
[2018-09-29 04:55] LABS: Calcium 8.5 MG/DL (8.5-10.1); Osmolality,Calculated 283.8 MOS/KG (273-304); Potassium 4.1 MMOL/L (3.5-5.1)
[2018-09-29 05:04] LABS: Anisocytosis 1+; Eosinophils 1 % (0-10); Hypochromasia 1+; Lymphocytes 8 % (20-55); Platelet Estimate Adequate; Segmented Neutrophils 91 % (50-85); Total Cells Counted 100
[2018-09-29] MEDS: DORNASE ALFA 2.5 MG/2.5 ML VIAL RESP TX SCH ×2 (06:41→20:09)
[2018-09-29] MEDS: methylPREDNISolone SOD SUC 40 MG/1 ML VIAL IV SCH ×2 (07:21→17:39)
[2018-09-29] MEDS: INSULIN REGULAR 100 UNIT/ML SUBCUT SCH ×4 (07:47→20:23)
[2018-09-29] MEDS ORDERED: MEPERIDINE 50 MG/1 ML VIAL IM ONE (08:00)
[2018-09-29] MEDS ORDERED: diphenhydrAMINE 50 MG/1 ML VIAL IM ONE (08:00)
[2018-09-29] MEDS ORDERED: BENZONATATE 100 MG CAPSULE PO ONE (08:00)
[2018-09-29] MEDS ORDERED: LIDOCAINE 2% VISCOUS 100 ML BOTTLE SWISH/SPIT ONE (08:30)
[2018-09-29] MEDS ORDERED: LIDOCAINE 1% 20 ML VIAL MISC INJ ONE (08:30)
[2018-09-29] MEDS ORDERED: LIDOCAINE 2% 20 ML VIAL RESP TX ONE (08:30)
[2018-09-29] MEDS ORDERED: MIDAZOLAM 2 MG/2 ML VIAL ONE (08:49)
[2018-09-29] MEDS ORDERED: MIDAZOLAM 2 MG/2 ML VIAL IV ONE (09:00)
[2018-09-29] MEDS: FUROSEMIDE 40 MG TABLET PO SCH ×2 (12:12→16:11)
[2018-09-29] MEDS: LEVOTHYROXINE 25 MCG TABLET PO SCH (12:12)
[2018-09-29] MEDS: POTASSIUM CHLORIDE 20 MEQ TABLET PO SCH (12:12)
[2018-09-29] MEDS: ASCORBIC ACID 500 MG TABLET PO SCH ×2 (12:12→20:22)
[2018-09-29] MEDS: PANTOPRAZOLE 40 MG TABLET PO SCH (12:12)
[2018-09-29] MEDS: SPIRONOLACTONE 50 MG TABLET PO SCH (12:13)
[2018-09-29] MEDS: MONTELUKAST 10 MG TABLET PO SCH ×2 (12:13→20:22)
[2018-09-29] MEDS: GABAPENTIN 300 MG CAPSULE PO SCH ×3 (12:13→20:23)
[2018-09-29] MEDS: TAMSULOSIN 0.4 MG CAPSULE PO SCH (12:13)
[2018-09-29] MEDS: METOPROLOL TARTRATE 25 MG TABLET PO SCH ×2 (12:13→20:23)
[2018-09-29] MEDS: ALLOPURINOL 300 MG TABLET PO SCH (12:13)
[2018-09-29] MEDS: CHLORHEXIDINE 0.12% ORAL RINSE 60 ML BOTTLE SWISH/SPIT SCH ×2 (12:14→20:23)
[2018-09-29] MEDS: ASPIRIN 325 MG TABLET PO SCH (12:14)
[2018-09-29] MEDS: ZINC OXIDE 16% PASTE 57 GM TUBE TOP SCH ×2 (12:14→20:23)
[2018-09-29] MEDS: LEVOFLOXACIN INJ 750 MG in PREMIX 1 EACH IV SCH (13:47)
[2018-09-29] MEDS: BENZONATATE 100 MG CAPSULE PO PRN (20:22)
[2018-09-29] MEDS: ATORVASTATIN 40 MG TABLET PO SCH (20:23)
[2018-09-30] MEDS: IPRATROPIUM 500 MCG/2.5 ML NEB RESP TX SCH ×4 (00:24→18:55)
[2018-09-30 05:11] LABS: Basophils % 0.1 % (0.0-0.8); Hematocrit 33.8 VOL% (42.0-52.0); Hemoglobin 10.8 GM/DL (14.0-18.0); Immature Granulocytes % 1.7 %; Immature Granulocytes Absolute 0.21 #; Lymphocytes # 0.7 10*3/uL (1.4-4.0); Lymphocytes % 5.7 % (21.2-54.2); Mean Corpuscular Hemoglobin 30 PG (27-34); Mean Corpuscular Volume 94.4 FL (87-102); Mean Platelet Volume 11.7 FL (9.6-12.0); Monocytes # 0.4 10*3/uL (0.11-0.8); Monocytes % 3.4 % (1.7-12.7); Neutrophils # 11.1 10*3/uL (1.4-7.4); Neutrophils % 89.1 % (38.7-73.9); Platelet Count 181 T/CUMM (130-400); Red Blood Count 3.58 MC/CUMM (3.8-5.5); Red Cell Distribution Width 14.5 % (9.3-17.3); White Blood Count 12.5 T/CUMM (4-12)
[2018-09-30 05:17] LABS: Partial Thromboplastin Time 23.1 SECS (0-40)
[2018-09-30 05:45] LABS: Calcium 8.6 MG/DL (8.5-10.1); Osmolality,Calculated 287.7 MOS/KG (273-304); Potassium 3.9 MMOL/L (3.5-5.1)
[2018-09-30] MEDS: methylPREDNISolone SOD SUC 40 MG/1 ML VIAL IV SCH ×2 (06:15→18:25)
[2018-09-30] MEDS: DORNASE ALFA 2.5 MG/2.5 ML VIAL RESP TX SCH ×2 (07:08→18:56)
[2018-09-30] MEDS ORDERED: MEPERIDINE 50 MG/1 ML VIAL IM ONE (08:00)
[2018-09-30] MEDS ORDERED: diphenhydrAMINE 50 MG/1 ML VIAL IM ONE (08:00)
[2018-09-30] MEDS ORDERED: LIDOCAINE 2% VISCOUS 100 ML BOTTLE SWISH/SPIT ONE (08:30)
[2018-09-30] MEDS ORDERED: MIDAZOLAM 2 MG/2 ML VIAL IV ONE (08:30)
[2018-09-30] MEDS ORDERED: LIDOCAINE 2% 20 ML VIAL RESP TX ONE (08:30)
[2018-09-30] MEDS ORDERED: LIDOCAINE 1% 20 ML VIAL MISC INJ ONE (08:30)
[2018-09-30] MEDS: INSULIN REGULAR 100 UNIT/ML SUBCUT SCH ×4 (08:55→20:36)
[2018-09-30] MEDS ORDERED: MIDAZOLAM 2 MG/2 ML VIAL ONE (09:46)
[2018-09-30] MEDS: LEVOFLOXACIN INJ 750 MG in PREMIX 1 EACH IV SCH (13:46)
[2018-09-30] MEDS: ASPIRIN 325 MG TABLET PO SCH (13:47)
[2018-09-30] MEDS: ALLOPURINOL 300 MG TABLET PO SCH (13:47)
[2018-09-30] MEDS: GABAPENTIN 300 MG CAPSULE PO SCH ×3 (13:47→23:03)
[2018-09-30] MEDS: ERGOCALCIFEROL 50,000 UNIT CAPSULE PO SCH (13:47)
[2018-09-30] MEDS: FUROSEMIDE 40 MG TABLET PO SCH ×2 (13:47→15:04)
[2018-09-30] MEDS: MONTELUKAST 10 MG TABLET PO SCH ×2 (13:47→22:57)
[2018-09-30] MEDS: SPIRONOLACTONE 50 MG TABLET PO SCH (13:47)
[2018-09-30] MEDS: LEVOTHYROXINE 25 MCG TABLET PO SCH (13:47)
[2018-09-30] MEDS: CHLORHEXIDINE 0.12% ORAL RINSE 60 ML BOTTLE SWISH/SPIT SCH ×2 (13:48→23:07)
[2018-09-30] MEDS: POTASSIUM CHLORIDE 20 MEQ TABLET PO SCH (13:48)
[2018-09-30] MEDS: METOPROLOL TARTRATE 25 MG TABLET PO SCH ×2 (13:48→23:39)
[2018-09-30] MEDS: TAMSULOSIN 0.4 MG CAPSULE PO SCH (13:48)
[2018-09-30] MEDS: PANTOPRAZOLE 40 MG TABLET PO SCH (13:48)
[2018-09-30] MEDS: ASCORBIC ACID 500 MG TABLET PO SCH ×2 (13:48→23:05)
[2018-09-30] MEDS: ZINC OXIDE 16% PASTE 57 GM TUBE TOP SCH ×2 (13:54→23:03)
[2018-09-30] MEDS: BENZONATATE 100 MG CAPSULE PO SCH ×2 (15:04→22:57)
[2018-09-30] MEDS ORDERED: METOPROLOL TARTRATE 5 MG/5 ML VIAL IV ONE (21:37)
[2018-09-30] MEDS ORDERED: METOPROLOL TARTRATE 25 MG TABLET PO ONE (22:48)
[2018-09-30] MEDS: ATORVASTATIN 40 MG TABLET PO SCH (22:58)
[2018-09-30] MEDS: METOPROLOL TARTRATE 50 MG TABLET PO SCH (23:38)
[2018-10-01] MEDS: LIDOCAINE 2% 20 ML VIAL RESP TX SCH ×4 (00:02→19:45)
[2018-10-01] MEDS: IPRATROPIUM 500 MCG/2.5 ML NEB RESP TX SCH ×3 (00:09→14:02)
[2018-10-01] MEDS: methylPREDNISolone SOD SUC 40 MG/1 ML VIAL IV SCH ×2 (06:30→18:00)
[2018-10-01] MEDS: DORNASE ALFA 2.5 MG/2.5 ML VIAL RESP TX SCH ×2 (07:59→19:45)
[2018-10-01] MEDS: ASPIRIN 325 MG TABLET PO SCH (09:17)
[2018-10-01] MEDS: TAMSULOSIN 0.4 MG CAPSULE PO SCH (09:17)
[2018-10-01] MEDS: BENZONATATE 100 MG CAPSULE PO SCH ×3 (09:18→22:08)
[2018-10-01] MEDS: LEVOTHYROXINE 25 MCG TABLET PO SCH (09:18)
[2018-10-01] MEDS: MONTELUKAST 10 MG TABLET PO SCH ×2 (09:18→22:08)
[2018-10-01] MEDS: GABAPENTIN 300 MG CAPSULE PO SCH ×3 (09:18→22:08)
[2018-10-01] MEDS: FUROSEMIDE 40 MG TABLET PO SCH ×2 (09:18→15:33)
[2018-10-01] MEDS: ASCORBIC ACID 500 MG TABLET PO SCH ×2 (09:18→22:08)
[2018-10-01] MEDS: POTASSIUM CHLORIDE 20 MEQ TABLET PO SCH (09:19)
[2018-10-01] MEDS: METOPROLOL TARTRATE 50 MG TABLET PO SCH (09:19)
[2018-10-01] MEDS: INSULIN REGULAR 100 UNIT/ML SUBCUT SCH ×4 (09:19→23:06)
[2018-10-01] MEDS: PANTOPRAZOLE 40 MG TABLET PO SCH (09:19)
[2018-10-01] MEDS: ALLOPURINOL 300 MG TABLET PO SCH (09:19)
[2018-10-01] MEDS: ZINC OXIDE 16% PASTE 57 GM TUBE TOP SCH ×2 (09:19→22:08)
[2018-10-01] MEDS: SPIRONOLACTONE 50 MG TABLET PO SCH (09:20)
[2018-10-01] MEDS: CHLORHEXIDINE 0.12% ORAL RINSE 60 ML BOTTLE SWISH/SPIT SCH ×2 (09:26→22:15)
[2018-10-01] MEDS: LEVALBUTEROL 1.25 MG/3 ML NEB RESP TX SCH ×2 (15:08→23:25)
[2018-10-01] MEDS: LEVOFLOXACIN INJ 750 MG in PREMIX 1 EACH IV SCH (15:10)
[2018-10-01] MEDS: ATORVASTATIN 40 MG TABLET PO SCH (22:08)
[2018-10-01] MEDS: METOPROLOL SUCCINATE XL 25 MG TABLET PO SCH (22:08)
[2018-10-02] MEDS ORDERED: METOPROLOL TARTRATE 5 MG/5 ML VIAL IV ONE ×2 (04:08→11:22)
[2018-10-02] MEDS: methylPREDNISolone SOD SUC 40 MG/1 ML VIAL IV SCH ×3 (06:39→18:34)
[2018-10-02] MEDS: LIDOCAINE 2% 20 ML VIAL RESP TX SCH ×3 (06:52→18:59)
[2018-10-02] MEDS: LEVALBUTEROL 1.25 MG/3 ML NEB RESP TX SCH ×2 (07:06→14:03)
[2018-10-02] MEDS: DORNASE ALFA 2.5 MG/2.5 ML VIAL RESP TX SCH ×2 (07:23→18:59)
[2018-10-02] MEDS: INSULIN REGULAR 100 UNIT/ML SUBCUT SCH ×4 (08:00→21:48)
[2018-10-02] MEDS: SPIRONOLACTONE 50 MG TABLET PO SCH (08:44)
[2018-10-02] MEDS: FUROSEMIDE 40 MG TABLET PO SCH (08:44)
[2018-10-02] MEDS: GABAPENTIN 300 MG CAPSULE PO SCH ×3 (08:44→21:38)
[2018-10-02] MEDS: LEVOTHYROXINE 25 MCG TABLET PO SCH (08:44)
[2018-10-02] MEDS: ASPIRIN 325 MG TABLET PO SCH (08:44)
[2018-10-02] MEDS: METOPROLOL SUCCINATE XL 25 MG TABLET PO SCH ×2 (08:44→21:38)
[2018-10-02] MEDS: MONTELUKAST 10 MG TABLET PO SCH ×2 (08:44→21:42)
[2018-10-02] MEDS: ASCORBIC ACID 500 MG TABLET PO SCH ×2 (08:44→21:41)
[2018-10-02] MEDS: ALLOPURINOL 300 MG TABLET PO SCH (08:45)
[2018-10-02] MEDS: POTASSIUM CHLORIDE 20 MEQ TABLET PO SCH (08:45)
[2018-10-02] MEDS: PANTOPRAZOLE 40 MG TABLET PO SCH (08:45)
[2018-10-02] MEDS: BENZONATATE 100 MG CAPSULE PO SCH ×3 (08:45→21:43)
[2018-10-02] MEDS: TAMSULOSIN 0.4 MG CAPSULE PO SCH (08:45)
[2018-10-02] MEDS: CHLORHEXIDINE 0.12% ORAL RINSE 60 ML BOTTLE SWISH/SPIT SCH ×2 (08:46→21:48)
[2018-10-02] MEDS: ZINC OXIDE 16% PASTE 57 GM TUBE TOP SCH ×2 (08:46→21:48)
[2018-10-02] MEDS ORDERED: METOPROLOL SUCCINATE XL 25 MG TABLET PO ONE (11:19)
[2018-10-02] MEDS ORDERED: guaiFENesin/CODEINE 5 ML LIQUID PO PRN (11:20)
[2018-10-02] MEDS: METOPROLOL TARTRATE 5 MG/5 ML VIAL IV SCH ×3 (11:30→11:43)
[2018-10-02] MEDS: DOCUSATE SODIUM 100 MG CAPSULE PO SCH ×2 (11:35→21:43)
[2018-10-02] MEDS: BISACODYL 5 MG TABLET PO SCH (11:35)
[2018-10-02] MEDS: dilTIAZem Drip 125 MG/125 ML PREMIX IV SCH (12:18)
[2018-10-02] MEDS: LEVOFLOXACIN INJ 750 MG in PREMIX 1 EACH IV SCH (14:30)
[2018-10-02] MEDS ORDERED: MORPHINE 10 MG/1 ML VIAL ONE (14:53)
[2018-10-02] MEDS: FUROSEMIDE 40 MG/4 ML VIAL IV SCH (16:26)
[2018-10-02 16:54] LABS: ABG Base Excess 9.7 MMOL/L (-2.5-2.5); ABG HCO3 33.3 MMOL/L (20-26); ABG PCO2 53.1 MM HG (35-48); ABG PH 7.435 (7.35-7.45); ABG PO2 56.1 MM HG (80-95); ABG TCO2 32.2 MMOL/L (23-27); Allen Test Positive
[2018-10-02] MEDS ORDERED: ALBUTEROL/IPRATROPIUM 3 ML NEB RESP TX ONE (17:47)
[2018-10-02 18:28] LABS: ABG Base Excess 7.5 MMOL/L (-2.5-2.5); ABG HCO3 31.1 MMOL/L (20-26); ABG Oxygen Saturation 89.9 % (95-100); ABG PCO2 49.8 MM HG (35-48); ABG PO2 59.7 MM HG (80-95); ABG TCO2 29.8 MMOL/L (23-27)
[2018-10-02] MEDS: ALBUTEROL/IPRATROPIUM 3 ML NEB RESP TX SCH ×2 (18:59→23:39)
[2018-10-02] MEDS ORDERED: ALBUTEROL/IPRATROPIUM 3 ML NEB RESP TX SCH (19:00)
[2018-10-02] MEDS: ATORVASTATIN 40 MG TABLET PO SCH (21:41)
[2018-10-03] MEDS: ALBUTEROL/IPRATROPIUM 3 ML NEB RESP TX SCH ×6 (02:43→23:40)
[2018-10-03] MEDS: methylPREDNISolone SOD SUC 40 MG/1 ML VIAL IV SCH ×3 (03:26→17:32)
[2018-10-03 05:34] LABS: Basophils % 0.1 % (0.0-0.8); Hematocrit 29.2 VOL% (42.0-52.0); Hemoglobin 9.2 GM/DL (14.0-18.0); Immature Granulocytes Absolute 0.32 #; Lymphocytes # 0.4 10*3/uL (1.4-4.0); Lymphocytes % 3.5 % (21.2-54.2); Mean Corpuscular HGB Conc 31.5 GM/DL (32-36); Mean Corpuscular Hemoglobin 30 PG (27-34); Mean Corpuscular Volume 96.4 FL (87-102); Mean Platelet Volume 12.1 FL (9.6-12.0); Monocytes # 0.4 10*3/uL (0.11-0.8); Neutrophils # 9.7 10*3/uL (1.4-7.4); Neutrophils % 89.4 % (38.7-73.9); Platelet Count 142 T/CUMM (130-400); Red Blood Count 3.03 MC/CUMM (3.8-5.5); Red Cell Distribution Width 14.8 % (9.3-17.3); White Blood Count 10.8 T/CUMM (4-12)
[2018-10-03 05:46] LABS: PT Patient Result 10.6 SECS; Partial Thromboplastin Time 23.4 SECS (0-40)
[2018-10-03 06:07] LABS: Hypochromasia 1+; Lymphocytes 4 % (20-55); Macrocytosis Slight; Segmented Neutrophils 94 % (50-85); Total Cells Counted 100
[2018-10-03 06:08] LABS: Platelet Estimate Adequate
[2018-10-03] MEDS ORDERED: FAMOTIDINE 20 MG TABLET PO ONE (07:50)
[2018-10-03] MEDS ORDERED: MEPERIDINE 50 MG/1 ML VIAL IM ONE (08:00)
[2018-10-03] MEDS ORDERED: diphenhydrAMINE 50 MG/1 ML VIAL IM ONE (08:00)
[2018-10-03] MEDS ORDERED: BENZONATATE 100 MG CAPSULE PO ONE (08:00)
[2018-10-03] MEDS: DORNASE ALFA 2.5 MG/2.5 ML VIAL RESP TX SCH ×2 (08:09→20:20)
[2018-10-03 08:10] LABS: Calcium 8.2 MG/DL (8.5-10.1); Osmolality,Calculated 286.7 MOS/KG (273-304); Potassium 4.4 MMOL/L (3.5-5.1)
[2018-10-03] MEDS: LIDOCAINE 2% 20 ML VIAL RESP TX SCH ×3 (08:15→20:15)
[2018-10-03] MEDS: INSULIN REGULAR 100 UNIT/ML SUBCUT SCH ×4 (08:21→23:20)
[2018-10-03] MEDS ORDERED: LIDOCAINE 1% 20 ML VIAL MISC INJ ONE (08:30)
[2018-10-03] MEDS ORDERED: LIDOCAINE 2% 20 ML VIAL RESP TX ONE (08:30)
[2018-10-03] MEDS ORDERED: LIDOCAINE 2% VISCOUS 100 ML BOTTLE SWISH/SPIT ONE (08:30)
[2018-10-03] MEDS: LACTATED RINGERS 1,000 ML IV SCH (10:59)
[2018-10-03] MEDS ORDERED: MIDAZOLAM 2 MG/2 ML VIAL ONE (11:44)
[2018-10-03] MEDS ORDERED: fentaNYL 100 MCG/2 ML VIAL ONE (11:44)
[2018-10-03] MEDS ORDERED: KETAMINE 500 MG/10 ML VIAL ONE (11:45)
[2018-10-03] MEDS: FUROSEMIDE 40 MG/4 ML VIAL IV SCH ×2 (13:25→16:04)
[2018-10-03] MEDS: GABAPENTIN 300 MG CAPSULE PO SCH ×3 (13:26→23:10)
[2018-10-03] MEDS: ZINC OXIDE 16% PASTE 57 GM TUBE TOP SCH ×2 (13:26→23:14)
[2018-10-03] MEDS: PANTOPRAZOLE 40 MG TABLET PO SCH (14:20)
[2018-10-03] MEDS: MONTELUKAST 10 MG TABLET PO SCH ×2 (14:20→23:09)
[2018-10-03] MEDS: POTASSIUM CHLORIDE 20 MEQ TABLET PO SCH (14:21)
[2018-10-03] MEDS: ASPIRIN 325 MG TABLET PO SCH (14:21)
[2018-10-03] MEDS: BISACODYL 5 MG TABLET PO SCH (14:21)
[2018-10-03] MEDS: ALLOPURINOL 300 MG TABLET PO SCH (14:21)
[2018-10-03] MEDS: SPIRONOLACTONE 50 MG TABLET PO SCH (14:21)
[2018-10-03] MEDS: LEVOTHYROXINE 25 MCG TABLET PO SCH (14:22)
[2018-10-03] MEDS: BENZONATATE 100 MG CAPSULE PO SCH ×3 (14:22→23:11)
[2018-10-03] MEDS: DOCUSATE SODIUM 100 MG CAPSULE PO SCH ×2 (14:22→23:20)
[2018-10-03] MEDS: METOPROLOL SUCCINATE XL 25 MG TABLET PO SCH ×2 (14:22→23:13)
[2018-10-03] MEDS: CHLORHEXIDINE 0.12% ORAL RINSE 60 ML BOTTLE SWISH/SPIT SCH ×2 (14:23→23:20)
[2018-10-03] MEDS: ASCORBIC ACID 500 MG TABLET PO SCH ×2 (14:23→23:12)
[2018-10-03] MEDS: TAMSULOSIN 0.4 MG CAPSULE PO SCH (14:23)
[2018-10-03] MEDS: dilTIAZem Drip 125 MG/125 ML PREMIX IV SCH (15:21)
[2018-10-03] MEDS: LEVOFLOXACIN INJ 750 MG in PREMIX 1 EACH IV SCH (16:04)
[2018-10-03] MEDS: ATORVASTATIN 40 MG TABLET PO SCH (23:14)
[2018-10-04] MEDS: methylPREDNISolone SOD SUC 40 MG/1 ML VIAL IV SCH ×3 (02:57→18:56)
[2018-10-04] MEDS: ALBUTEROL/IPRATROPIUM 3 ML NEB RESP TX SCH ×3 (03:05→11:20)
[2018-10-04 05:27] LABS: Basophils % 0.1 % (0.0-0.8); Hematocrit 32.2 VOL% (42.0-52.0); Hemoglobin 10.3 GM/DL (14.0-18.0); Immature Granulocytes % 1.4 %; Immature Granulocytes Absolute 0.23 #; Lymphocytes # 0.4 10*3/uL (1.4-4.0); Lymphocytes % 2.2 % (21.2-54.2); Mean Corpuscular Hemoglobin 31 PG (27-34); Mean Corpuscular Volume 96.4 FL (87-102); Mean Platelet Volume 11.5 FL (9.6-12.0); Monocytes # 0.5 10*3/uL (0.11-0.8); Monocytes % 3.1 % (1.7-12.7); Neutrophils # 15.4 10*3/uL (1.4-7.4); Neutrophils % 93.2 % (38.7-73.9); Platelet Count 169 T/CUMM (130-400); Red Blood Count 3.34 MC/CUMM (3.8-5.5); Red Cell Distribution Width 14.9 % (9.3-17.3); White Blood Count 16.6 T/CUMM (4-12)
[2018-10-04 05:46] LABS: Band Neutrophils 1 % (0-10); Hypochromasia 1+; Lymphocytes 1 % (20-55); Macrocytosis Slight; Ovalocytes Slight; Segmented Neutrophils 94 % (50-85); Total Cells Counted 100
[2018-10-04 05:49] LABS: Calcium 8.5 MG/DL (8.5-10.1); Osmolality,Calculated 285.8 MOS/KG (273-304); Potassium 4.1 MMOL/L (3.5-5.1)
[2018-10-04] MEDS: DORNASE ALFA 2.5 MG/2.5 ML VIAL RESP TX SCH ×2 (08:05→18:57)
[2018-10-04] MEDS: LIDOCAINE 2% 20 ML VIAL RESP TX SCH ×3 (08:05→18:57)
[2018-10-04] MEDS: INSULIN REGULAR 100 UNIT/ML SUBCUT SCH ×3 (09:34→16:13)
[2018-10-04] MEDS: DOCUSATE SODIUM 100 MG CAPSULE PO SCH (09:34)
[2018-10-04] MEDS: ALLOPURINOL 300 MG TABLET PO SCH (09:34)
[2018-10-04] MEDS: BISACODYL 5 MG TABLET PO SCH (09:35)
[2018-10-04] MEDS: GABAPENTIN 300 MG CAPSULE PO SCH ×2 (09:35→14:42)
[2018-10-04] MEDS: LEVOTHYROXINE 25 MCG TABLET PO SCH (09:35)
[2018-10-04] MEDS: POTASSIUM CHLORIDE 20 MEQ TABLET PO SCH (09:35)
[2018-10-04] MEDS: PANTOPRAZOLE 40 MG TABLET PO SCH (09:36)
[2018-10-04] MEDS: BENZONATATE 100 MG CAPSULE PO SCH ×2 (09:36→14:42)
[2018-10-04] MEDS: TAMSULOSIN 0.4 MG CAPSULE PO SCH (09:36)
[2018-10-04] MEDS: ASPIRIN 325 MG TABLET PO SCH (09:36)
[2018-10-04] MEDS: ASCORBIC ACID 500 MG TABLET PO SCH (09:36)
[2018-10-04] MEDS: METOPROLOL SUCCINATE XL 25 MG TABLET PO SCH (09:36)
[2018-10-04] MEDS: MONTELUKAST 10 MG TABLET PO SCH (09:37)
[2018-10-04] MEDS: ZINC OXIDE 16% PASTE 57 GM TUBE TOP SCH (09:37)
[2018-10-04] MEDS: SPIRONOLACTONE 50 MG TABLET PO SCH (09:37)
[2018-10-04] MEDS: FUROSEMIDE 40 MG/4 ML VIAL IV SCH ×2 (09:37→16:48)
[2018-10-04] MEDS: CHLORHEXIDINE 0.12% ORAL RINSE 60 ML BOTTLE SWISH/SPIT SCH (09:38)
[2018-10-04] MEDS: dilTIAZem Drip 125 MG/125 ML PREMIX IV SCH (13:16)
[2018-10-04] MEDS: LACTATED RINGERS 1,000 ML IV SCH (13:16)
[2018-10-04] MEDS: LEVALBUTEROL 0.63 MG/3 ML NEB RESP TX SCH ×3 (14:30→22:48)
[2018-10-04] MEDS: LEVOFLOXACIN INJ 750 MG in PREMIX 1 EACH IV SCH (14:41)
[2018-10-04] MEDS: DILTIAZEM CD 240 MG CAPSULE PO SCH (14:42)
[2018-10-05] MEDS: METOPROLOL SUCCINATE XL 25 MG TABLET PO SCH ×3 (00:01→22:02)
[2018-10-05] MEDS: BENZONATATE 100 MG CAPSULE PO SCH ×4 (00:01→22:02)
[2018-10-05] MEDS: ASCORBIC ACID 500 MG TABLET PO SCH ×3 (00:01→22:02)
[2018-10-05] MEDS: MONTELUKAST 10 MG TABLET PO SCH ×3 (00:01→22:03)
[2018-10-05] MEDS: INSULIN REGULAR 100 UNIT/ML SUBCUT SCH ×5 (00:11→22:03)
[2018-10-05] MEDS: LEVALBUTEROL 0.63 MG/3 ML NEB RESP TX SCH ×5 (02:46→19:04)
[2018-10-05] MEDS: methylPREDNISolone SOD SUC 40 MG/1 ML VIAL IV SCH ×3 (03:26→17:50)
[2018-10-05 06:03] LABS: Basophils % 0.1 % (0.0-0.8); Hematocrit 31.6 VOL% (42.0-52.0); Immature Granulocytes % 1.5 %; Immature Granulocytes Absolute 0.25 #; Lymphocytes # 0.4 10*3/uL (1.4-4.0); Lymphocytes % 2.5 % (21.2-54.2); Mean Corpuscular HGB Conc 31.6 GM/DL (32-36); Mean Corpuscular Hemoglobin 30 PG (27-34); Mean Platelet Volume 11.6 FL (9.6-12.0); Monocytes # 0.6 10*3/uL (0.11-0.8); Monocytes % 3.7 % (1.7-12.7); Neutrophils # 15.4 10*3/uL (1.4-7.4); Neutrophils % 92.2 % (38.7-73.9); Platelet Count 179 T/CUMM (130-400); Red Blood Count 3.29 MC/CUMM (3.8-5.5); Red Cell Distribution Width 14.9 % (9.3-17.3); White Blood Count 16.7 T/CUMM (4-12)
[2018-10-05 06:19] LABS: Calcium 8.4 MG/DL (8.5-10.1); Osmolality,Calculated 286.7 MOS/KG (273-304); Potassium 4.2 MMOL/L (3.5-5.1)
[2018-10-05 07:00] LABS: Band Neutrophils 2 % (0-10); Hypochromasia 1+; Lymphocytes 2 % (20-55); Ovalocytes Slight; Platelet Estimate Adequate; Segmented Neutrophils 91 % (50-85); Total Cells Counted 100
[2018-10-05 07:01] LABS: Macrocytosis Slight
[2018-10-05] MEDS: LIDOCAINE 2% 20 ML VIAL RESP TX SCH ×3 (07:05→19:04)
[2018-10-05] MEDS: DORNASE ALFA 2.5 MG/2.5 ML VIAL RESP TX SCH ×2 (07:17→19:04)
[2018-10-05] MEDS: SPIRONOLACTONE 50 MG TABLET PO SCH (09:12)
[2018-10-05] MEDS: ALLOPURINOL 300 MG TABLET PO SCH (09:13)
[2018-10-05] MEDS: TAMSULOSIN 0.4 MG CAPSULE PO SCH (09:14)
[2018-10-05] MEDS: GABAPENTIN 300 MG CAPSULE PO SCH ×4 (09:14→22:03)
[2018-10-05] MEDS: PANTOPRAZOLE 40 MG TABLET PO SCH (09:15)
[2018-10-05] MEDS: POTASSIUM CHLORIDE 20 MEQ TABLET PO SCH (09:15)
[2018-10-05] MEDS: FUROSEMIDE 40 MG/4 ML VIAL IV SCH ×2 (09:15→15:33)
[2018-10-05] MEDS: BISACODYL 5 MG TABLET PO SCH (09:15)
[2018-10-05] MEDS: DOCUSATE SODIUM 100 MG CAPSULE PO SCH ×3 (09:15→22:03)
[2018-10-05] MEDS: LEVOTHYROXINE 25 MCG TABLET PO SCH (09:30)
[2018-10-05] MEDS: ASPIRIN 325 MG TABLET PO SCH (09:30)
[2018-10-05] MEDS: CHLORHEXIDINE 0.12% ORAL RINSE 60 ML BOTTLE SWISH/SPIT SCH ×3 (09:30→22:09)
[2018-10-05] MEDS: DILTIAZEM CD 240 MG CAPSULE PO SCH (09:31)
[2018-10-05] MEDS: FLUCONAZOLE INJ 200 MG in PREMIX 1 EACH IV SCH (11:10)
[2018-10-05] MEDS: DILTIAZEM CD 180 MG CAPSULE PO SCH (12:27)
[2018-10-05] MEDS: LACTATED RINGERS 1,000 ML IV SCH (12:27)
[2018-10-05] MEDS: ZINC OXIDE 16% PASTE 57 GM TUBE TOP SCH ×3 (12:38→22:03)
[2018-10-05] MEDS: dilTIAZem Drip 125 MG/125 ML PREMIX IV SCH (14:37)
[2018-10-05] MEDS: ATORVASTATIN 40 MG TABLET PO SCH ×2 (22:03)
[2018-10-06] MEDS: LEVALBUTEROL 0.63 MG/3 ML NEB RESP TX SCH ×7 (00:15→23:58)
[2018-10-06] MEDS: methylPREDNISolone SOD SUC 40 MG/1 ML VIAL IV SCH ×3 (02:17→18:10)
[2018-10-06] MEDS ORDERED: CEFUROXIME INJ 1,500 MG in SYRINGE 1 EACH IV ONE (05:00)
[2018-10-06 05:16] LABS: Basophils % 0.1 % (0.0-0.8); Hematocrit 31.3 VOL% (42.0-52.0); Immature Granulocytes % 2.4 %; Lymphocytes # 0.5 10*3/uL (1.4-4.0); Mean Corpuscular HGB Conc 31.9 GM/DL (32-36); Mean Corpuscular Hemoglobin 30 PG (27-34); Mean Corpuscular Volume 94.8 FL (87-102); Mean Platelet Volume 11.7 FL (9.6-12.0); Monocytes # 0.4 10*3/uL (0.11-0.8); Monocytes % 3.1 % (1.7-12.7); Neutrophils # 11.2 10*3/uL (1.4-7.4); Neutrophils % 90.4 % (38.7-73.9); Platelet Count 176 T/CUMM (130-400); Red Cell Distribution Width 15.1 % (9.3-17.3); White Blood Count 12.4 T/CUMM (4-12)
[2018-10-06 05:47] LABS: Calcium 8.4 MG/DL (8.5-10.1); Osmolality,Calculated 290.5 MOS/KG (273-304); Potassium 4.2 MMOL/L (3.5-5.1)
[2018-10-06 05:50] LABS: Hypochromasia 1+; Lymphocytes 2 % (20-55); Platelet Estimate Adequate; Segmented Neutrophils 93 % (50-85); Total Cells Counted 100
[2018-10-06 05:51] LABS: Macrocytosis Slight
[2018-10-06] MEDS ORDERED: ALBUTEROL 2.5 MG/3 ML NEB RESP TX ONE (06:49)
[2018-10-06] MEDS: DORNASE ALFA 2.5 MG/2.5 ML VIAL RESP TX SCH ×2 (07:14→19:10)
[2018-10-06] MEDS: LIDOCAINE 2% 20 ML VIAL RESP TX SCH ×3 (07:17→19:00)
[2018-10-06] MEDS ORDERED: VANCOMYCIN 1,000 MG VIAL ONE (08:02)
[2018-10-06] MEDS ORDERED: TISSUE ADHESIVE 1 EACH APPLICATOR TOP ONE (09:09)
[2018-10-06] MEDS: INSULIN REGULAR 100 UNIT/ML SUBCUT SCH ×4 (09:42→22:08)
[2018-10-06] MEDS: HYDROmorphone 2 MG/1 ML VIAL IV PRN ×4 (10:00→10:15)
[2018-10-06] MEDS ORDERED: ONDANSETRON 4 MG/2 ML VIAL ONE ×2 (10:11→10:14)
[2018-10-06] MEDS ORDERED: HYDROmorphone 2 MG/1 ML VIAL ONE (10:11)
[2018-10-06] MEDS ORDERED: SEVOFLURANE 1 UNIT/15 MINUTE INH ONE (10:13)
[2018-10-06] MEDS ORDERED: PROPOFOL 200 MG/20 ML VIAL IV ONE (10:13)
[2018-10-06] MEDS ORDERED: PHENYLEPHRINE 10 MG/1 ML VIAL IV ONE (10:14)
[2018-10-06] MEDS ORDERED: PHENYLEPHRINE 1 MG/10 ML SYRINGE IV ONE (10:14)
[2018-10-06] MEDS ORDERED: GLYCOPYRROLATE 0.4 MG/2 ML VIAL ONE (10:14)
[2018-10-06] MEDS ORDERED: MIDAZOLAM 2 MG/2 ML VIAL ONE (10:14)
[2018-10-06] MEDS ORDERED: fentaNYL 100 MCG/2 ML VIAL ONE (10:14)
[2018-10-06] MEDS ORDERED: SODIUM CHLORIDE 0.9% 250 ML IV ONE (10:15)
[2018-10-06] MEDS ORDERED: LACTATED RINGERS 1,000 ML IV ONE (10:15)
[2018-10-06] MEDS ORDERED: ROCURONIUM 100 MG/10 ML VIAL IV ONE (10:15)
[2018-10-06] MEDS ORDERED: SODIUM CHLORIDE 0.9% 1,000 ML IV ONE (10:15)
[2018-10-06] MEDS ORDERED: ESMOLOL 100 MG/10 ML VIAL IV ONE ×2 (10:28→10:30)
[2018-10-06] MEDS ORDERED: dilTIAZem Drip 125 MG/125 ML PREMIX IV ONE (10:28)
[2018-10-06] MEDS: dilTIAZem Drip 125 MG/125 ML PREMIX IV SCH ×2 (10:45→13:41)
[2018-10-06] MEDS ORDERED: MEPERIDINE 25 MG/1 ML VIAL ONE (11:22)
[2018-10-06] MEDS ORDERED: ONDANSETRON 4 MG/2 ML VIAL IV PRN (11:43)
[2018-10-06] MEDS ORDERED: MEPERIDINE 25 MG/1 ML VIAL IV PRN (11:43)
[2018-10-06] MEDS: FLUCONAZOLE INJ 200 MG in PREMIX 1 EACH IV SCH (13:24)
[2018-10-06] MEDS: FUROSEMIDE 40 MG/4 ML VIAL IV SCH ×2 (13:25→18:10)
[2018-10-06] MEDS: TAMSULOSIN 0.4 MG CAPSULE PO SCH (13:26)
[2018-10-06] MEDS: ASPIRIN 325 MG TABLET PO SCH (13:26)
[2018-10-06] MEDS: MONTELUKAST 10 MG TABLET PO SCH ×2 (13:26→22:05)
[2018-10-06] MEDS: METOPROLOL SUCCINATE XL 25 MG TABLET PO SCH ×2 (13:26→22:05)
[2018-10-06] MEDS: GABAPENTIN 300 MG CAPSULE PO SCH ×3 (13:26→22:06)
[2018-10-06] MEDS: ALLOPURINOL 300 MG TABLET PO SCH (13:26)
[2018-10-06] MEDS: LEVOTHYROXINE 25 MCG TABLET PO SCH (13:26)
[2018-10-06] MEDS: DOCUSATE SODIUM 100 MG CAPSULE PO SCH ×2 (13:27→22:07)
[2018-10-06] MEDS: BENZONATATE 100 MG CAPSULE PO SCH ×3 (13:27→22:04)
[2018-10-06] MEDS: DILTIAZEM CD 180 MG CAPSULE PO SCH (13:27)
[2018-10-06] MEDS: BISACODYL 5 MG TABLET PO SCH (13:27)
[2018-10-06] MEDS: SPIRONOLACTONE 50 MG TABLET PO SCH (13:27)
[2018-10-06] MEDS: ASCORBIC ACID 500 MG TABLET PO SCH ×2 (13:28→22:05)
[2018-10-06] MEDS: CHLORHEXIDINE 0.12% ORAL RINSE 60 ML BOTTLE SWISH/SPIT SCH ×2 (13:28→22:07)
[2018-10-06] MEDS: POTASSIUM CHLORIDE 20 MEQ TABLET PO SCH (13:28)
[2018-10-06] MEDS: ZINC OXIDE 16% PASTE 57 GM TUBE TOP SCH ×2 (13:28→22:07)
[2018-10-06] MEDS: PANTOPRAZOLE 40 MG TABLET PO SCH (13:28)
[2018-10-06] MEDS: LACTATED RINGERS 1,000 ML IV SCH (13:41)
[2018-10-06] MEDS ORDERED: NITROGLYCERIN SL 0.4 MG TABLET SL ONE (17:28)
[2018-10-06] MEDS: ATORVASTATIN 40 MG TABLET PO SCH (22:05)
[2018-10-07] MEDS: methylPREDNISolone SOD SUC 40 MG/1 ML VIAL IV SCH ×4 (01:50→21:41)
[2018-10-07] MEDS: LEVALBUTEROL 0.63 MG/3 ML NEB RESP TX SCH ×6 (03:58→23:51)
[2018-10-07 04:08] LABS: Basophils % 0.1 % (0.0-0.8); Hematocrit 31.7 VOL% (42.0-52.0); Immature Granulocytes % 2.2 %; Immature Granulocytes Absolute 0.36 #; Lymphocytes # 0.3 10*3/uL (1.4-4.0); Mean Corpuscular HGB Conc 31.5 GM/DL (32-36); Mean Corpuscular Hemoglobin 30 PG (27-34); Mean Corpuscular Volume 95.8 FL (87-102); Mean Platelet Volume 11.7 FL (9.6-12.0); Monocytes # 0.6 10*3/uL (0.11-0.8); Monocytes % 3.6 % (1.7-12.7); NRBC # 0.03 10*3/uL; Neutrophils # 14.8 10*3/uL (1.4-7.4); Neutrophils % 92.1 % (38.7-73.9); Platelet Count 195 T/CUMM (130-400); Red Blood Count 3.31 MC/CUMM (3.8-5.5); Red Cell Distribution Width 15.1 % (9.3-17.3)
[2018-10-07 04:29] LABS: Band Neutrophils 2 % (0-10); Lymphocytes 3 % (20-55); Metamyelocytes 1 %; Segmented Neutrophils 90 % (50-85); Total Cells Counted 100
[2018-10-07 04:31] LABS: Hypochromasia 1+; Platelet Estimate Normal
[2018-10-07 04:34] LABS: Albumin 2.5 G/DL (3.4-5.0); Calcium 7.9 MG/DL (8.5-10.1); Osmolality,Calculated 288.8 MOS/KG (273-304); Potassium 4.4 MMOL/L (3.5-5.1); Total Protein 5.3 G/DL (6.4-8.3)
[2018-10-07] MEDS: DORNASE ALFA 2.5 MG/2.5 ML VIAL RESP TX SCH ×2 (06:57→19:34)
[2018-10-07] MEDS: LIDOCAINE 2% 20 ML VIAL RESP TX SCH ×3 (06:57→19:34)
[2018-10-07] MEDS: ASPIRIN 325 MG TABLET PO SCH (09:28)
[2018-10-07] MEDS: LEVOTHYROXINE 25 MCG TABLET PO SCH (09:28)
[2018-10-07] MEDS: METOPROLOL SUCCINATE XL 25 MG TABLET PO SCH ×2 (09:28→21:40)
[2018-10-07] MEDS: BENZONATATE 100 MG CAPSULE PO SCH ×3 (09:28→21:37)
[2018-10-07] MEDS: BISACODYL 5 MG TABLET PO SCH (09:28)
[2018-10-07] MEDS: POTASSIUM CHLORIDE 20 MEQ TABLET PO SCH (09:29)
[2018-10-07] MEDS: PANTOPRAZOLE 40 MG TABLET PO SCH (09:29)
[2018-10-07] MEDS: ASCORBIC ACID 500 MG TABLET PO SCH ×2 (09:29→21:37)
[2018-10-07] MEDS: GABAPENTIN 300 MG CAPSULE PO SCH ×3 (09:29→21:37)
[2018-10-07] MEDS: TAMSULOSIN 0.4 MG CAPSULE PO SCH (09:30)
[2018-10-07] MEDS: ERGOCALCIFEROL 50,000 UNIT CAPSULE PO SCH (09:30)
[2018-10-07] MEDS: SPIRONOLACTONE 50 MG TABLET PO SCH (09:30)
[2018-10-07] MEDS: ALLOPURINOL 300 MG TABLET PO SCH (09:30)
[2018-10-07] MEDS: DOCUSATE SODIUM 100 MG CAPSULE PO SCH ×2 (09:30→21:37)
[2018-10-07] MEDS: MONTELUKAST 10 MG TABLET PO SCH ×2 (09:30→21:37)
[2018-10-07] MEDS: FUROSEMIDE 40 MG/4 ML VIAL IV SCH ×2 (09:31→16:35)
[2018-10-07] MEDS: INSULIN REGULAR 100 UNIT/ML SUBCUT SCH ×4 (09:31→21:40)
[2018-10-07] MEDS: FLUCONAZOLE INJ 200 MG in PREMIX 1 EACH IV SCH (09:32)
[2018-10-07] MEDS: ZINC OXIDE 16% PASTE 57 GM TUBE TOP SCH ×2 (09:32→21:40)
[2018-10-07] MEDS: CHLORHEXIDINE 0.12% ORAL RINSE 60 ML BOTTLE SWISH/SPIT SCH ×2 (09:32→21:40)
[2018-10-07] MEDS: DILTIAZEM CD 180 MG CAPSULE PO SCH (09:34)
[2018-10-07] MEDS: LOSARTAN 25 MG TABLET PO SCH (13:42)
[2018-10-07] MEDS: dilTIAZem Drip 125 MG/125 ML PREMIX IV SCH (13:42)
[2018-10-07] MEDS: LACTATED RINGERS 1,000 ML IV SCH (13:59)
[2018-10-07] MEDS: DESITIN 4OZ/NYSTATIN 15 GRAM MIXTURE PASTE TOP SCH ×2 (14:30→21:39)
[2018-10-07] MEDS: ATORVASTATIN 40 MG TABLET PO SCH (21:37)
[2018-10-08] MEDS: LEVALBUTEROL 0.63 MG/3 ML NEB RESP TX SCH ×6 (03:41→23:10)
[2018-10-08 04:10] LABS: Basophils % 0.1 % (0.0-0.8); Hematocrit 29.3 VOL% (42.0-52.0); Hemoglobin 9.2 GM/DL (14.0-18.0); Immature Granulocytes % 4.7 %; Immature Granulocytes Absolute 0.64 #; Lymphocytes # 0.4 10*3/uL (1.4-4.0); Lymphocytes % 2.7 % (21.2-54.2); Mean Corpuscular HGB Conc 31.4 GM/DL (32-36); Mean Corpuscular Hemoglobin 30 PG (27-34); Mean Corpuscular Volume 95.1 FL (87-102); Monocytes # 0.6 10*3/uL (0.11-0.8); Monocytes % 4.3 % (1.7-12.7); NRBC # 0.02 10*3/uL; Neutrophils # 12.1 10*3/uL (1.4-7.4); Neutrophils % 88.2 % (38.7-73.9); Platelet Count 184 T/CUMM (130-400); Red Blood Count 3.08 MC/CUMM (3.8-5.5); Red Cell Distribution Width 15.3 % (9.3-17.3); White Blood Count 13.8 T/CUMM (4-12)
[2018-10-08 04:20] LABS: Calcium 7.8 MG/DL (8.5-10.1); Osmolality,Calculated 288.8 MOS/KG (273-304); Potassium 4.3 MMOL/L (3.5-5.1)
[2018-10-08 05:11] LABS: Band Neutrophils 1 % (0-10); Lymphocytes 2 % (20-55); Platelet Estimate Normal; Segmented Neutrophils 95 % (50-85); Total Cells Counted 100
[2018-10-08] MEDS: DORNASE ALFA 2.5 MG/2.5 ML VIAL RESP TX SCH ×2 (07:18→19:10)
[2018-10-08] MEDS: LIDOCAINE 2% 20 ML VIAL RESP TX SCH ×3 (07:18→19:05)
[2018-10-08] MEDS: POTASSIUM CHLORIDE 20 MEQ TABLET PO SCH (08:41)
[2018-10-08] MEDS: LOSARTAN 25 MG TABLET PO SCH (08:42)
[2018-10-08] MEDS: TAMSULOSIN 0.4 MG CAPSULE PO SCH (08:42)
[2018-10-08] MEDS: LEVOTHYROXINE 25 MCG TABLET PO SCH (08:42)
[2018-10-08] MEDS: PANTOPRAZOLE 40 MG TABLET PO SCH (08:42)
[2018-10-08] MEDS: BISACODYL 5 MG TABLET PO SCH (08:42)
[2018-10-08] MEDS: BENZONATATE 100 MG CAPSULE PO SCH ×3 (08:42→20:58)
[2018-10-08] MEDS: MONTELUKAST 10 MG TABLET PO SCH ×2 (08:43→20:58)
[2018-10-08] MEDS: GABAPENTIN 300 MG CAPSULE PO SCH ×3 (08:43→20:58)
[2018-10-08] MEDS: ASPIRIN 325 MG TABLET PO SCH (08:43)
[2018-10-08] MEDS: DOCUSATE SODIUM 100 MG CAPSULE PO SCH ×2 (08:43→20:58)
[2018-10-08] MEDS: METOPROLOL SUCCINATE XL 25 MG TABLET PO SCH ×2 (08:43→21:00)
[2018-10-08] MEDS: ALLOPURINOL 300 MG TABLET PO SCH (08:43)
[2018-10-08] MEDS: ASCORBIC ACID 500 MG TABLET PO SCH ×2 (08:43→20:58)
[2018-10-08] MEDS: SPIRONOLACTONE 50 MG TABLET PO SCH (08:43)
[2018-10-08] MEDS: FUROSEMIDE 40 MG/4 ML VIAL IV SCH ×2 (08:44→16:33)
[2018-10-08] MEDS: INSULIN REGULAR 100 UNIT/ML SUBCUT SCH ×4 (08:44→21:54)
[2018-10-08] MEDS: FLUCONAZOLE INJ 200 MG in PREMIX 1 EACH IV SCH (08:48)
[2018-10-08] MEDS: DILTIAZEM CD 180 MG CAPSULE PO SCH ×2 (08:48→12:14)
[2018-10-08] MEDS: DESITIN 4OZ/NYSTATIN 15 GRAM MIXTURE PASTE TOP SCH ×2 (08:48→21:00)
[2018-10-08] MEDS: CHLORHEXIDINE 0.12% ORAL RINSE 60 ML BOTTLE SWISH/SPIT SCH ×2 (08:48→21:00)
[2018-10-08] MEDS: ZINC OXIDE 16% PASTE 57 GM TUBE TOP SCH ×2 (08:48→21:00)
[2018-10-08] MEDS: methylPREDNISolone SOD SUC 40 MG/1 ML VIAL IV SCH ×2 (09:06→21:01)
[2018-10-08] MEDS: dilTIAZem Drip 125 MG/125 ML PREMIX IV SCH (12:27)
[2018-10-08] MEDS: LACTATED RINGERS 1,000 ML IV SCH (12:27)
[2018-10-08] MEDS: ATORVASTATIN 40 MG TABLET PO SCH (20:58)
[2018-10-09] MEDS: LEVALBUTEROL 0.63 MG/3 ML NEB RESP TX SCH ×6 (03:15→23:57)
[2018-10-09 04:26] LABS: Basophils % 0.1 % (0.0-0.8); Hematocrit 30.8 VOL% (42.0-52.0); Hemoglobin 9.7 GM/DL (14.0-18.0); Immature Granulocytes % 5.1 %; Immature Granulocytes Absolute 0.77 #; Lymphocytes # 0.4 10*3/uL (1.4-4.0); Lymphocytes % 2.7 % (21.2-54.2); Mean Corpuscular HGB Conc 31.5 GM/DL (32-36); Mean Corpuscular Hemoglobin 30 PG (27-34); Mean Platelet Volume 11.2 FL (9.6-12.0); Monocytes # 0.6 10*3/uL (0.11-0.8); Monocytes % 4.1 % (1.7-12.7); NRBC # 0.03 10*3/uL; Neutrophils # 13.3 10*3/uL (1.4-7.4); Platelet Count 181 T/CUMM (130-400); Red Blood Count 3.21 MC/CUMM (3.8-5.5); Red Cell Distribution Width 15.5 % (9.3-17.3); White Blood Count 15.1 T/CUMM (4-12)
[2018-10-09 04:43] LABS: Calcium 8.2 MG/DL (8.5-10.1); Osmolality,Calculated 295.5 MOS/KG (273-304); Potassium 4.5 MMOL/L (3.5-5.1)
[2018-10-09 05:14] LABS: Lymphocytes 3 % (20-55); Segmented Neutrophils 96 % (50-85); Total Cells Counted 100
[2018-10-09 05:15] LABS: Platelet Estimate Normal; Polychromasia Few
[2018-10-09] MEDS: LIDOCAINE 2% 20 ML VIAL RESP TX SCH ×3 (07:36→19:19)
[2018-10-09] MEDS: DORNASE ALFA 2.5 MG/2.5 ML VIAL RESP TX SCH ×2 (07:43→19:19)
[2018-10-09] MEDS: LEVOTHYROXINE 25 MCG TABLET PO SCH (09:21)
[2018-10-09] MEDS: POTASSIUM CHLORIDE 20 MEQ TABLET PO SCH (09:21)
[2018-10-09] MEDS: BENZONATATE 100 MG CAPSULE PO SCH ×3 (09:21→21:39)
[2018-10-09] MEDS: INSULIN REGULAR 100 UNIT/ML SUBCUT SCH ×4 (09:21→21:43)
[2018-10-09] MEDS: ALLOPURINOL 300 MG TABLET PO SCH (09:21)
[2018-10-09] MEDS: ASCORBIC ACID 500 MG TABLET PO SCH ×2 (09:21→21:38)
[2018-10-09] MEDS: BISACODYL 5 MG TABLET PO SCH (09:22)
[2018-10-09] MEDS: LOSARTAN 25 MG TABLET PO SCH (09:22)
[2018-10-09] MEDS: GABAPENTIN 300 MG CAPSULE PO SCH ×3 (09:22→21:39)
[2018-10-09] MEDS: METOPROLOL SUCCINATE XL 25 MG TABLET PO SCH ×2 (09:22→21:41)
[2018-10-09] MEDS: TAMSULOSIN 0.4 MG CAPSULE PO SCH (09:22)
[2018-10-09] MEDS: PANTOPRAZOLE 40 MG TABLET PO SCH (09:22)
[2018-10-09] MEDS: MONTELUKAST 10 MG TABLET PO SCH ×2 (09:23→21:38)
[2018-10-09] MEDS: SPIRONOLACTONE 50 MG TABLET PO SCH (09:23)
[2018-10-09] MEDS: ASPIRIN 325 MG TABLET PO SCH (09:23)
[2018-10-09] MEDS: DOCUSATE SODIUM 100 MG CAPSULE PO SCH ×2 (09:23→21:39)
[2018-10-09] MEDS: DILTIAZEM CD 180 MG CAPSULE PO SCH (09:23)
[2018-10-09] MEDS: methylPREDNISolone SOD SUC 40 MG/1 ML VIAL IV SCH ×2 (09:24→21:44)
[2018-10-09] MEDS: FLUCONAZOLE INJ 200 MG in PREMIX 1 EACH IV SCH (09:24)
[2018-10-09] MEDS: CHLORHEXIDINE 0.12% ORAL RINSE 60 ML BOTTLE SWISH/SPIT SCH ×2 (09:25→22:18)
[2018-10-09] MEDS: FUROSEMIDE 40 MG/4 ML VIAL IV SCH ×2 (09:25→16:12)
[2018-10-09] MEDS: ZINC OXIDE 16% PASTE 57 GM TUBE TOP SCH ×2 (09:25→22:18)
[2018-10-09] MEDS: DESITIN 4OZ/NYSTATIN 15 GRAM MIXTURE PASTE TOP SCH ×2 (09:25→22:19)
[2018-10-09] MEDS: dilTIAZem Drip 125 MG/125 ML PREMIX IV SCH (11:39)
[2018-10-09] MEDS: LACTATED RINGERS 1,000 ML IV SCH (11:57)
[2018-10-09] MEDS: ATORVASTATIN 40 MG TABLET PO SCH (21:39)
[2018-10-10] MEDS: LEVALBUTEROL 0.63 MG/3 ML NEB RESP TX SCH ×4 (03:19→14:05)
[2018-10-10 04:23] LABS: Basophils % 0.2 % (0.0-0.8); Hemoglobin 10.6 GM/DL (14.0-18.0); Immature Granulocytes Absolute 1.24 #; Lymphocytes # 0.5 10*3/uL (1.4-4.0); Lymphocytes % 2.7 % (21.2-54.2); Mean Corpuscular HGB Conc 31.2 GM/DL (32-36); Mean Corpuscular Hemoglobin 30 PG (27-34); Mean Corpuscular Volume 96.3 FL (87-102); Monocytes # 0.6 10*3/uL (0.11-0.8); Monocytes % 3.4 % (1.7-12.7); Neutrophils # 15.4 10*3/uL (1.4-7.4); Neutrophils % 86.7 % (38.7-73.9); Platelet Count 220 T/CUMM (130-400); Red Blood Count 3.53 MC/CUMM (3.8-5.5); Red Cell Distribution Width 15.5 % (9.3-17.3); White Blood Count 17.8 T/CUMM (4-12)
[2018-10-10 04:44] LABS: Calcium 8.6 MG/DL (8.5-10.1); Osmolality,Calculated 289.8 MOS/KG (273-304); Potassium 4.7 MMOL/L (3.5-5.1)
[2018-10-10 04:50] LABS: Band Neutrophils 2 % (0-10); Hypochromasia 1+; Lymphocytes 4 % (20-55); Myelocytes 1 %; Platelet Estimate Adequate; Segmented Neutrophils 91 % (50-85); Total Cells Counted 100
[2018-10-10] MEDS: LIDOCAINE 2% 20 ML VIAL RESP TX SCH ×2 (07:15→13:59)
[2018-10-10] MEDS: DORNASE ALFA 2.5 MG/2.5 ML VIAL RESP TX SCH (07:30)
[2018-10-10] MEDS: ASCORBIC ACID 500 MG TABLET PO SCH (08:44)
[2018-10-10] MEDS: GABAPENTIN 300 MG CAPSULE PO SCH (08:45)
[2018-10-10] MEDS: MONTELUKAST 10 MG TABLET PO SCH (08:45)
[2018-10-10] MEDS: PANTOPRAZOLE 40 MG TABLET PO SCH (08:45)
[2018-10-10] MEDS: LEVOTHYROXINE 25 MCG TABLET PO SCH (08:45)
[2018-10-10] MEDS: SPIRONOLACTONE 50 MG TABLET PO SCH (08:46)
[2018-10-10] MEDS: ALLOPURINOL 300 MG TABLET PO SCH (08:46)
[2018-10-10] MEDS: ASPIRIN 325 MG TABLET PO SCH (08:48)
[2018-10-10] MEDS: TAMSULOSIN 0.4 MG CAPSULE PO SCH (08:48)
[2018-10-10] MEDS: LOSARTAN 25 MG TABLET PO SCH (08:48)
[2018-10-10] MEDS: DOCUSATE SODIUM 100 MG CAPSULE PO SCH (08:48)
[2018-10-10] MEDS: BENZONATATE 100 MG CAPSULE PO SCH (08:48)
[2018-10-10] MEDS: METOPROLOL SUCCINATE XL 25 MG TABLET PO SCH (08:48)
[2018-10-10] MEDS: BISACODYL 5 MG TABLET PO SCH (08:48)
[2018-10-10] MEDS: POTASSIUM CHLORIDE 20 MEQ TABLET PO SCH (08:48)
[2018-10-10] MEDS: methylPREDNISolone SOD SUC 40 MG/1 ML VIAL IV SCH (08:49)
[2018-10-10] MEDS: FUROSEMIDE 40 MG/4 ML VIAL IV SCH (08:49)
[2018-10-10] MEDS: INSULIN REGULAR 100 UNIT/ML SUBCUT SCH ×2 (08:49→12:40)
[2018-10-10] MEDS: DESITIN 4OZ/NYSTATIN 15 GRAM MIXTURE PASTE TOP SCH (08:57)
[2018-10-10] MEDS: CHLORHEXIDINE 0.12% ORAL RINSE 60 ML BOTTLE SWISH/SPIT SCH (08:57)
[2018-10-10] MEDS: FLUCONAZOLE INJ 200 MG in PREMIX 1 EACH IV SCH (08:57)
[2018-10-10] MEDS: ZINC OXIDE 16% PASTE 57 GM TUBE TOP SCH (08:57)
[2018-10-10] MEDS: DILTIAZEM CD 180 MG CAPSULE PO SCH (08:58)
[2018-10-10 12:26] VITALS: BP 131/83
[2018-10-10] MEDS: LACTATED RINGERS 1,000 ML IV SCH (12:40)
[2018-10-10] MEDS: dilTIAZem Drip 125 MG/125 ML PREMIX IV SCH (13:47)
[2018-10-11] MEDS ORDERED: methylPREDNISolone 4 MG TABLET PO SCH (09:00)
[2018-10-11] MEDS ORDERED: FLUCONAZOLE 200 MG TABLET PO SCH (09:00)
== END 2018-10-10 14:25 | disposition swing bed (61) | DRG 235 ==
LOC: N.SDSINP 05:17 → N.CVR 07:33 → N.TELES 09-23 10:20
PROVIDERS: ADMIT Thoracic Surgery (Cardiothoracic Vascular Surgery); ATTEND Thoracic Surgery (Cardiothoracic Vascular Surgery)